=== PATIENT | male | born 1930 | race Caucasian/White ===

== ENCOUNTER → 2016-10-20 | Outpatient (CLI) | payer MEDICARE, BC, MEDICAID ==
[~2016-10-20] MED LIST: ACET-2267 PO; ALPR0.5T PO; BISA10SU58 RC; CEPH250S PO; DIPH25CA79 PO; ESCI20TA45 PO; FLUT9.9S NS; LEVO25TA2 PO; MAGN100T6 PO; MAGN400O7 PO; MELA5TAB14 PO; MEMA10TA2 PO; PHEN118S12 PO; POLY17PO6 PO; RIVA1PAT3 TD; TOLT2TAB5 PO; TRAZ100T92 PO
[2016-10-20 13:42] LABS: BILIRUBIN,URINE NEGATIVE (NEGATIVE); KETONES,URINE NEGATIVE (NEGATIVE); LEUKOCYTE ESTERASE ,URINE 3+ (NEGATIVE); NITRITE,URINE POSITIVE (NEGATIVE); PH,URINE 8 (5-9); PROTEIN,URINE 2+ (NEGATIVE); UROBILINOGEN,URINE 1 MG/DL (NORMAL)
[2016-10-20 13:54] LABS: SQUAMOUS EPITHELIAL CELL,UR RARE /HPF; TRIPLE PHOSPHATE CRYSTAL,UR RARE /LPF; WBC,URINE >100 /HPF
== END ==
PROVIDERS: ATTEND Family Medicine
DX: N39.0 Urinary tract infection, site not specified (principal)
CPT/HCPCS: 81000; 87088

== ENCOUNTER 2016-12-26 12:13 | Emergency (ER) | payer MEDICARE, BC, MEDICAID ==
[~2016-12-26] VITALS: Ht 180.3 cm; Wt 70.3 kg
--- NOTE | 2016-12-26 12:35 | ED General ---
General Chief Complaint: General Problems/Pain Stated Complaint: NEAR SYNCOPE Nursing Triage Note: [facility] called report, stating pt had sudden palor, right sided facial drooping, right sided weakness, unable to stand. pt unable to answer questions correctly for me on arrival by [facility]. Nursing Sepsis Screen: No Definite Risk Source of Information: Patient, EMS History of Present Illness Time Seen by Provider: 12:19 Initial Comments The patient's an 86-year-old white male resident of a local long-term. He was sent after a call to his PCP informed that they thought him to be less alert and active than before. It was stated that there appeared to be a right facial droop. He could not seem to walk and he was normally ambulatory. It was also thought that speech was impaired. When the EMS crew arrived they found him able to speak clearly. He apparently told them that he did not think anything was wrong that he was just a bit weak today. On my attempt to interview him he appeared to be ignoring me. The nurses reported that this had occurred for them however when they put the blood pressure cuff on he became much more alert. He did not respond verbally to the glabellar thump or sternal rub. 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 However after plantar stimulus he became quite verbally aggressive. Timing/Duration: 1-3 Hours Allergies and Home Medications Allergies Coded Allergies: donepezil (Verified Allergy, Unknown, 04/05/16) Home Medications Acetaminophen 500 Mg Tablet, 1,000 MG PO Q6H PRN for PAIN, (Reported) Alprazolam 0.5 Mg Tablet, 0.5 MG PO QID PRN for ANXIETY, (Reported) Bisacodyl 10 Mg Supp.rect, 10 MG RC DAILY PRN PRN for CONSTIPATION, (Reported) Diphenhydramine HCl 25 Mg Capsule, 25 MG PO Q6H PRN for ITCHING, (Reported) Escitalopram Oxalate 20 Mg Tablet, 20 MG PO HS, (Reported) Fluticasone Propionate 9.9 Ml Evart.susp, 9.9 ML NS DAILY, (Reported) Levothyroxine Sodium 25 Mcg Tablet, 25 MCG PO DAILY, (Reported) Magnesium Hydroxide 400 Mg/5 Ml Oral.susp, 30 ML PO DAILY PRN for CONSTIPATION, (Reported) Melatonin 5 Mg Tablet, 6 MG PO HS, (Reported) Memantine HCl 10 Mg Tablet, 10 MG PO BID, (Reported) Polyethylene Glycol 3350 17 Gm Powd.pack, 17 GM PO DAILY, (Reported) Promethazine/Phenyleph/Codeine 118 Ml Syrup, 5 ML PO Q6H PRN for COUGH, ( Reported) Rivastigmine 9.5 Mg Patch, 9.5 MG TD, (Reported) Tolterodine Tartrate 2 Mg Tablet, 2 MG PO BID, (Reported) Trazodone HCl 100 Mg Tablet, 100 MG PO HS, (Reported) Constitutional: other (the patient was not cooperative with the attempts at questioning) Past Fnospfn-Pocunt-Dxrins Hx Patient Social History Recent Foreign Travel: No Contact w/Someone Who Travel: No Recent Infectious Disease Expo: No Recent Hopitalizations: No Immunizations Up To Date Tetanus Booster (TDap): Unknown Date of Pneumonia Vaccine: Jan 18, 2016 Seasonal Allergies Seasonal Allergies: No Surgeries HX Surgeries: No (UNKNOWN) Respiratory Hx Respiratory Disorders: No Cardiovascular Hx Cardiac Disorders: No Neurological Hx Neurological Disorders: Yes Neurological Disorders: Dementia Reproductive System Hx Reproductive Disorders: No Genitourinary Hx Genitourinary Disorders: No Gastrointestinal Hx Gastrointestinal Disorders: Yes Gastrointestinal Disorders: Gastroesophageal Reflux, Chronic Constipation Musculoskeletal Hx Musculoskeletal Disorders: No Endocrine Hx Endocrine Disorders: Yes Endocrine Disorders: Hypothyroidsim HEENT HX ENT Disorders: No Cancer Hx Cancer: No Psychosocial Hx Psychiatric Problems: Yes Behavioral Health Disorders: Anxiety, Depression Integumentary HX Skin/Integumentary Disorder: No Blood Transfusions Hx Blood Disorders: No Family Medical History Significant Family History: No Pertinent Family Hx Physical Exam Vital Signs Vital Sign - Last 12Hours 12/26/16 12:17 Temp 97.0 Pulse 64 Resp 18 B/P (MAP) 99/67 Pulse Ox 100 O2 Delivery Nasal Cannula O2 Flow Rate 3.00 Capillary Refill : Less Than 3 Seconds General Appearance: Other Eyes: Bilateral Eye PERRL HEENT: Normal ENT Inspection Neck: Full Range of Motion, Normal Inspection, Non Tender, Supple, Carotid Bruit Respiratory: Chest Non Tender, Lungs Clear, Normal Breath Sounds, No Accessory Muscle Use, No Respiratory Distress Cardiovascular: Regular Rate, Rhythm, No Edema, No Gallop, No JVD, No Murmur, Normal Peripheral Pulses Gastrointestinal: Normal Bowel Sounds, No Organomegaly, No Pulsatile Mass, Non Tender, Soft Back: Normal Inspection, No CVA Tenderness, No Vertebral Tenderness Extremity: Normal Capillary Refill, Normal Inspection, Normal Range of Motion, Non Tender, No Calf Tenderness, No Pedal Edema Skin: Normal Color, Warm/Dry Lymphatic: No Adenopathy Progress/Results/Core Measures Results/Orders Lab Results Laboratory Tests Test 12/26/16 12:23 Range/Units White Blood Count 6.2 4.3-11.0 10^3/uL Red Blood Count 4.23 L 4.35-5.85 10^6/uL Hemoglobin 12.2 L 13.3-17.7 G/DL Hematocrit 39 L 40-54 % Mean Corpuscular Volume 92 80-99 FL Mean Corpuscular Hemoglobin 29 25-34 PG Mean Corpuscular Hemoglobin Concent 31 L 32-36 G/DL Red Cell Distribution Width 14.7 H 10.0-14.5 % Platelet Count 261 130-400 10^3/uL Mean Platelet Volume 9.7 7.4-10.4 FL Neutrophils (%) (Auto) 69 42-75 % Lymphocytes (%) (Auto) 20 12-44 % Monocytes (%) (Auto) 8 0-12 % Eosinophils (%) (Auto) 3 0-10 % Basophils (%) (Auto) 0 0-10 % Neutrophils # (Auto) 4.3 1.8-7.8 X 10^3 Lymphocytes # (Auto) 1.2 1.0-4.0 X 10^3 Monocytes # (Auto) 0.5 0.0-1.0 X 10^3 Eosinophils # (Auto) 0.2 0.0-0.3 10^3/uL Basophils # (Auto) 0.0 0.0-0.1 10^3/uL Sodium Level 143 135-145 MMOL/L Potassium Level 4.5 3.6-5.0 MMOL/L Chloride Level 107 98-107 MMOL/L Carbon Dioxide Level 25 21-32 MMOL/L Anion Gap 11 5-14 MMOL/L Blood Urea Nitrogen 26 H 7-18 MG/DL Creatinine 1.13 0.60-1.30 MG/DL Estimat Glomerular Filtration Rate > 60 BUN/Creatinine Ratio 23 Glucose Level 97 70-105 MG/DL Calcium Level 8.9 8.5-10.1 MG/DL Total Bilirubin 0.4 0.1-1.0 MG/DL Aspartate Amino Transf (AST/SGOT) 17 5-34 U/L Alanine Aminotransferase (ALT/SGPT) 11 0-55 U/L Alkaline Phosphatase 75 40-136 U/L Total Protein 6.3 L 6.4-8.2 G/DL Albumin 3.5 3.2-4.5 G/DL My Orders Orders - AALIYAH GRANDA MD Ct Head Wo (12/26/16 12:25) Cbc With Automated Diff (12/26/16 12:25) Comprehensive Metabolic Panel (12/26/16 12:25) Ua Culture If Indicated (12/26/16 12:25) Vital Signs/I&O Vital Sign - Last 12Hours 12/26/16 12:17 Temp 97.0 Pulse 64 Resp 18 B/P (MAP) 99/67 Pulse Ox 100 O2 Delivery Nasal Cannula O2 Flow Rate 3.00 Blood Pressure Mean: 78 Departure Communication Progress Notes CT scan of the head shows increase in size of the lateral ventricles as compared to May 2016. 1434 family is here at this time. He is brighter than he has been at any time during this visit. Impression Impression: Primary Impression: decreased level of consciousness Disposition: 01 HOME, SELF-CARE Condition: Improved Departure-Patient Inst. Decision time for Depature: 14:33 Referrals: SHAKIRA PLEITEZ DO (PCP/Family) Primary Care Physician Add. Discharge Instructions: All discharge instructions reviewed with patient and/or family. Voiced understanding. Encourage fluid intake. Resume orders AALIYAH GRANDA MD Dec 26, 2016 12:35
[2016-12-26 12:52] LABS: BASOPHILS % (AUTO) 0 % (0-10); EOSINOPHILS # (AUTO) 0.2 10^3/uL (0.0-0.3); EOSINOPHILS % (AUTO) 3 % (0-10); LYMPHOCYTES # (AUTO) 1.2 X 10^3 (1.0-4.0); LYMPHOCYTES % (AUTO) 20 % (12-44); MEAN CORPUSCULAR HEMOGLOBIN 29 PG (25-34); MEAN CORPUSCULAR HGB CONC 31 G/DL (32-36); MEAN CORPUSCULAR VOLUME 92 FL (80-99); MEAN PLATELET VOLUME 9.7 FL (7.4-10.4); MONOCYTES # (AUTO) 0.5 X 10^3 (0.0-1.0); MONOCYTES % (AUTO) 8 % (0-12); NEUTROPHILS # (AUTO) 4.3 X 10^3 (1.8-7.8); NEUTROPHILS % (AUTO) 69 % (42-75); PLATELET COUNT 261 10^3/uL (130-400); RED BLOOD COUNT 4.23 10^6/uL (4.35-5.85); RED CELL DISTRIBUTION WIDTH 14.7 % (10.0-14.5); WHITE BLOOD COUNT 6.2 10^3/uL (4.3-11.0)
[2016-12-26 13:01] LABS: ALANINE AMINOTRANSFERASE 11 U/L (0-55); ALBUMIN 3.5 G/DL (3.2-4.5); ANION GAP 11 MMOL/L (5-14); ASPARTATE AMINO TRANSFERASE 17 U/L (5-34); BILIRUBIN,TOTAL 0.4 MG/DL (0.1-1.0); BLOOD UREA NITROGEN 26 MG/DL (7-18); BUN/CREATININE RATIO 23; CALCIUM 8.9 MG/DL (8.5-10.1); CARBON DIOXIDE 25 MMOL/L (21-32); CHLORIDE 107 MMOL/L (98-107); CREATININE SERUM 1.13 MG/DL (0.60-1.30); GFR ESTIMATED > 60; GLUCOSE 97 MG/DL (70-105); POTASSIUM 4.5 MMOL/L (3.6-5.0); SODIUM 143 MMOL/L (135-145); TOTAL PROTEIN 6.3 G/DL (6.4-8.2)
--- NOTE | 2016-12-26 13:58 | Diagnostic Imaging Report ---
CLINICAL INDICATION: Patient with altered mental status. EXAM: Axial CT scan of the brain performed without IV contrast. COMPARISON: Head CT without IV contrast dated 06/05/2016. FINDINGS: There is interval progression of enlargement of the temporal horns of the lateral ventricles. There is also slight increased prominence of the lateral ventricles and third ventricle as well. There is no obstructing third ventricular mass or cerebral aqueduct abnormality seen. There is no significant change to the focal, patchy and mildly confluent areas of low-attenuation white matter changes seen throughout both cerebral hemispheres. There is no evidence of intracranial hemorrhage, midline shift or herniation. Of note, the upper aspect of the brain parenchyma and skull was not completely imaged on this exam. There is marked brain parenchymal volume loss involving the bilateral temporal lobes with the anterior aspects of the temporal lobes affected the most. There is no brain herniation or midline shift seen. Basal cisterns are unremarkable. The extracranial soft tissue, skull and orbits are unremarkable as visualized. IMPRESSION: 1: There is interval enlargement of the lateral and third ventricles compared to the prior study. 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 Clinical correlation is suggested. 2: There is marked volume loss involving the bilateral temporal lobe regions. Correlation with dementia is suggested. 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 Dictated by: Dictated on workstation # [id number]
[2016-12-26 15:54] VITALS: BP 134/77
== END 2016-12-26 15:54 ==
LOC: EDUNIT# 12:13 → ER 12:14
DX: R41.82 Altered mental status, unspecified (principal); F03.90 Unspecified dementia, unspecified severity, without behavioral disturbance, psychotic disturbance, mood disturbance, and anxiety; Z79.899 Other long term (current) drug therapy
CPT/HCPCS: 36415; 70450; 80053; 85025; 99283

== ENCOUNTER 2017-01-22 12:44 | Emergency (ER) | payer MEDICARE, BC, MEDICAID ==
[~2017-01-22] VITALS: Ht 180.3 cm; Wt 70.3 kg
--- OUTSIDE RECORDS SUMMARY | 2017-01-22 13:00 | XMS REPORT | Continuity of Care Document ---
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 08/08/2012 D 486 PNEUMONIA, ORGANISM NOS 08/08/2012 D 780.79 OTHER MALAISE & FATIGUE 08/08/2012 D 276.51 DEHYDRATION 08/08/2012 D 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 08/08/2012 D 486 PNEUMONIA, ORGANISM NOS 08/08/2012 D 780.79 OTHER MALAISE & FATIGUE 08/14/2012 SAM PUGH DO 294.11 DEMENTIA W/ BEHAV DISTUR 08/14/2012 SAM PUGH DO 311 DEPRESSIVE DISORDER NEC 08/14/2012 SAM PUGH DO 331.0 ALZHEIMER'S DISEASE 08/14/2012 SAM PUGH DO 486 PNEUMONIA, ORGANISM NOS 08/14/2012 SAM PUGH DO 780.79 OTHER MALAISE & FATIGUE 08/14/2012 SAM PUGH DO 783.0 ANOREXIA 08/14/2012 SAM PUGH DO 786.6 CHEST SWELLING/MASS/LUMP 08/14/2012 SAM PUGH DO 790.6 ABN BLOOD CHEMISTRY NEC 08/17/2012 KIKI REAL MD 294.11 DEMENTIA W/ BEHAV DISTUR 08/17/2012 KIKI REAL MD 311 DEPRESSIVE DISORDER NEC 08/17/2012 KIKI REAL MD 331.0 ALZHEIMER'S DISEASE 08/17/2012 KIKI REAL MD 486 PNEUMONIA, ORGANISM NOS 08/17/2012 KIKI REAL MD 599.0 URIN TRACT INFECTION NOS 08/17/2012 KIKI REAL MD 780.79 OTHER MALAISE & FATIGUE 08/17/2012 KIKI REAL MD 783.0 ANOREXIA 08/17/2012 KIKI REAL MD 786.6 CHEST SWELLING/MASS/LUMP 08/17/2012 KIKI REAL MD 790.6 ABN BLOOD CHEMISTRY NEC 08/17/2012 KIKI REAL MD V57.89 REHABILITATION PROC NEC 09/25/2013 KIKI REAL MD 487.1 FLU W RESP MANIFEST NEC 09/25/2013 KIKI REAL MD 780.60 FEVER NOS 09/25/2013 KIKI REAL MD 780.97 ALTERED MENTAL STATUS 09/25/2013 KIKI REAL MD 486 PNEUMONIA, ORGANISM NOS 09/25/2013 KIKI REAL MD 488.01 FLU D/T AIV W PNEUMONIA 09/25/2013 KIKI REAL MD 780.60 FEVER NOS 09/25/2013 KIKI REAL MD 786.2 COUGH 09/28/2013 CIRO CONTRERAS MD 244.9 HYPOTHYROIDISM NOS 09/28/2013 CIRO CONTRERAS MD 294.10 DEMENTIA W/O BEHAV DIST 09/28/2013 ICRO CONTRERAS MD 331.0 ALZHEIMER'S DISEASE 09/28/2013 CIRO CONTRERAS MD 487.1 FLU W RESP MANIFEST NEC 09/28/2013 CIRO CONTRERAS MD 780.97 ALTERED MENTAL STATUS 10/17/2013 KIKI REAL MD 799.02 HYPOXEMIA 10/17/2013 KIKI REAL MD 799.02 HYPOXEMIA 10/25/2013 CIRO CONTRERAS MD 780.2 SYNCOPE AND COLLAPSE 01/29/2014 ELIZABETH POTTER MD 704.8 HAIR DISEASES NEC 01/29/2014 ELIZABETH POTTER MD 704.8 HAIR DISEASES NEC 10/21/2014 CIRO CONTRERAS MD 244.9 HYPOTHYROIDISM NOS 10/21/2014 CIRO CONTRERAS MD 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 10/21/2014 CIRO CONTRERAS MD 268.9 VITAMIN D DEFICIENCY NOS 10/21/2014 CIRO CONTRERAS MD 780.52 INSOMNIA NOS 10/21/2014 CIRO CONTRERAS MD 780.79 OTHER MALAISE & FATIGUE 08/19/2015 CIRO CONTRERAS MD E86.0 Dehydration 08/19/2015 CIRO CONTRERAS MD F02.80 Dementia in oth diseases classd elswhr w/o behavrl disturb 08/19/2015 CIRO CONTRERAS MD G30.9 Alzheimer's disease, unspecified 08/19/2015 CIRO CONTRERAS MD J20.9 Acute bronchitis, unspecified 08/19/2015 CIRO CONTRERAS MD R09.02 Hypoxemia 08/20/2015 CIRO CONTRERAS MD E86.0 Dehydration 08/20/2015 CIRO CONTRERAS MD F02.80 Dementia in oth diseases classd elswhr w/o behavrl disturb 08/20/2015 CIRO CONTRERAS MD G30.9 Alzheimer's disease, unspecified 08/20/2015 CIRO CONTRERAS MD J20.9 Acute bronchitis, unspecified 08/20/2015 CIRO CONTRERAS MD R09.02 Hypoxemia Procedures Code Description [place] [address] ROUTINE VENIPUNCTURE SAM PUGH DO 04/24/2012 46416 COMPREHEN METABOLIC PANEL SAM PUGH DO 04/24/2012 94744 ASSAY OF TOTAL TESTOSTERONE SAM PUGH DO 04/24/2012 68540 ASSAY THYROID STIM HORMONE SAM PUGH DO 04/24/2012 89607 COMPLETE CBC W/AUTO DIFF WBC SAM PUGH DO 04/24/2012 83919 CHEST X-RAY SAM PUGH DO 08/08/2012 76663 COMPREHEN METABOLIC PANEL SAM PUGH DO 08/08/2012 93315 NATRIURETIC PEPTIDE SAM PUGH DO 08/08/2012 31181 BL SMEAR W/DIFF WBC COUNT FANI HOOVER 08/08/2012 39166 COMPLETE CBC, AUTOMATED FANI HOOVER 08/08/2012 61995 MYCOPLASMA ANTIBODY SAM PUGH DO 08/08/2012 99937 EMERGENCY DEPT VISIT FANI HOOVER 08/08/2012 26928 EMERGENCY DEPT VISIT FANI HOOVER 08/08/2012 28089 EMERGENCY DEPT VISIT FARHAN SULTANA, KIKI Miller 09/25/[address] HEAD/BRAIN W/O & W/BERNARDO REAL MD, KIKI Miller 09/25/2013 00481 CHEST X-RAY FARHAN SULTANA, KIKI Miller 09/25/[address] THORAX W/BERNARDO REAL MD, KIKI Miller 09/25/2013 07371 COMPREHEN METABOLIC PANEL FARHAN SULTANA, KIKI Miller 09/25/2013 21649 COMPLETE CBC W/AUTO DIFF WBC FARHAN SULTANA, KIKI Miller 09/25/2013 12156 MYCOPLASMA ANTIBODY FARHAN SULTANA, KIKI Miller 09/25/2013 56386 BLOOD CULTURE FOR BACTERIA FARHAN SULTANA, KIKI Miller 09/25/2013 27994 AG DETECT NOS, EIA, MULT FARHAN SULTANA, KIKI Miller 09/25/2013 37169 INFLUENZA ASSAY W/OPTIC FARHAN SULTANA, KIKI Miller 09/25/2013 20263 EMERGENCY DEPT VISIT FARHAN SULTANA, KIKI Miller 09/25/2013 Q9966 LOCM 200-299MG/ML IODINE,1ML FARHAN SULTANA, KIKI Miller 09/25/2013 09209 WITHDRAWAL OF ARTERIAL BLOOD BEN SULTANA, CIRO Flowers 10/17/2013 47301 CHEST X-RAY BEN SULTANA, CIRO Flowers 10/17/2013 61583 COMPREHEN METABOLIC PANEL BEN SULTANA , CIRO Flowers 10/17/2013 48193 BLOOD GASES: PH, PO2 & PCO2 BEN SULTANA, CIRO Flowers 10/17/2013 04387 COMPLETE CBC W/AUTO DIFF WBC BEN SULTANA, CIRO Flowers 10/17/2013 15703 MYCOPLASMA ANTIBODY BEN SULTANA, CIRO Flowers 10/17/2013 02876 EMERGENCY DEPT VISIT FARHAN SULTANA, KIKI Miller 10/17/2013 33348 EMERGENCY DEPT VISIT FARHAN SULTANA, KIKI Miller 10/17/2013 44666 ECG MONITOR/RECORD, 24 HRS BEN SULTANA , CIRO Flowers 10/25/2013 68093 CHEST X-RAY CIRO CONTRERAS MD 01/29/2014 46430 X-RAY EXAM OF SHOULDER CIRO CONTRERAS MD 01/29/2014 97537 THER/PROPH/DIAG INJ, SC/IM ELIZABETH POTTER MD 01/29/2014 28235 EMERGENCY DEPT VISIT ELIZABETH POTTER MD 01/29/2014 A9270 NON-COVERED ITEM OR SERVICE JASMYNE POTTER MDO Linnette 01/29/2014 J0696 CEFTRIAXONE SODIUM INJECTION ELIZABETH POTTER MD 01/29/2014 J1885 KETOROLAC TROMETHAMINE INJ ELIZABETH POTTER MD 01/29/2014 88521 EMERGENCY DEPT VISIT ELIZABETH POTTER MD 01/29/2014 54916 ROUTINE VENIPUNCTURE CIRO CONTRERAS MD 10/21/2014 58542 COMPREHEN METABOLIC PANEL CIRO CONTRERAS MD 10/21/2014 21618 ASSAY OF VITAMIN D CIRO CONTRERAS MD 10/21/2014 03135 VITAMIN B-12 CIRO CONTRERAS MD 10/21/2014 50207 ASSAY OF MAGNESIUM CIRO CONTRERAS MD 10/21/2014 40255 ASSAY OF FREE THYROXINE CIRO CONTRERAS MD 10/21/2014 13343 ASSAY THYROID STIM HORMONE CIRO CONTRERAS MD 10/21/2014 67919 COMPLETE CBC W/AUTO DIFF WBC CIRO CONTRERAS MD 10/21/2014 94069 ROUTINE VENIPUNCTURE CIRO CONTRERAS MD 08/19/2015 15701 WITHDRAWAL OF ARTERIAL BLOOD CIRO CONTRERAS MD 08/19/2015 04270 CHEST X-RAY 1 VIEW FRONTAL CIRO CONTRERAS MD 08/19/2015 72093 COMPREHEN METABOLIC PANEL CIRO CONTRERAS MD 08/19/2015 62902 BLOOD GASES ANY COMBINATION CIRO CONTRERAS MD 08/19/2015 49516 ASSAY OF LACTIC ACID CIRO CONTRERAS MD 08/19/2015 23394 ASSAY OF NATRIURETIC PEPTIDE CIRO CONTRERAS MD 08/19/2015 77243 COMPLETE CBC W/AUTO DIFF WBC CIRO CONTRERAS MD 08/19/2015 67200 MYCOPLASMA ANTIBODY BEN SULTANA, CIRO Kristie 08/19/2015 93007 AIRWAY INHALATION TREATMENT BEN SULTANA, [facility] 08/19/2015 08275 TX/PRO/DX INJ SAME DRUG FISH ROE TECHNICIAN BEN SULTANA, [facility] 08/19/2015 34649 EMERGENCY DEPT VISIT BEN SULTANA, CIRO B 08/19/2015 A9270 NON-COVERED ITEM OR SERVICE ABBEY SULTANA , [facility] 08/19/2015 G0378 HOSPITAL OBSERVATION PER HR BEN SULTANA, [facility] 08/19/2015 J0696 CEFTRIAXONE SODIUM ELVI POTTER MD , [facility] 08/19/2015 J7030 NORMAL SALINE SOLUTION NAPOLEON POTTER MD , [facility] 08/19/2015 J7050 NORMAL SALINE SOLUTION NAPOLEON POTTER MD , [facility] 08/19/2015 98733 EMERGENCY DEPT VISIT ABBEY SULTANA, [facility] 08/19/2015 65198 URINALYSIS AUTO W/SCOPE BEN SULTANA, [facility] 08/20/2015 10716 CULTURE OTHR SPECIMN AEROBIC BEN SULTANA, [facility] 08/20/2015 57472 CULTURE AEROBIC IDENTIFY BEN SULTANA, [facility] 08/20/2015 89334 SMEAR GRAM STAIN BEN SULTANA, [facility] 08/20/2015 36819 AIRWAY INHALATION TREATMENT BEN SULTANA, [facility] 08/20/2015 13902 THER/PROPH/DIAG IV INF INIT BEN SULTANA [facility] 08/20/2015 A9270 NON-COVERED ITEM OR SERVICE ABBEY SULTANA , [facility] 08/20/2015 J0696 CEFTRIAXONE SODIUM ELVI POTTER MD , [facility] 08/20/2015 J7030 NORMAL SALINE SOLUTION NAPOLEON POTTER MD , [facility] 08/20/2015 J7050 NORMAL SALINE SOLUTION NAPOLEON POTTER MD , [facility] 08/20/2015 Results Test Result Range COMPLETE BLOOD COUNT - 09/25/13 10:23 Platelet 239 10^3u 142-424 MPV 8.9 FL 9.4-12.4 [place] # 0.70 10^3u 0.0-1.0 RBC 4.24 10^6u 4.04-6.13 [place] % 9.6 % 0-12 RDW 14.2 % 11.6-14.8 Neut # 5.80 10^3u 2.0-6.9 Neut % 79.8 % 37-80 WBC 7.27 10^3u 4.60-10.20 MCV 87.7 FL 80.0-97.0 Baso # 0.03 10^3u 0.0-0.1 Baso % 0.4 % 0-2 Eos # 0.02 10^3u 0-0.7 Eos % 0.3 % 0-7 Lymph % 9.9 % 10-50 MCHC 32.8 G/DL 31.8-35.4 MCH 28.8 PG 27.0-31.2 Lymph # 0.72 10^3u 0.6-3.4 HGB 12.2 G/DL 12.2-18.1 HCT 37.2 % 37.7-53.7 CMP - 09/25/13 10:23 Osmo Calculated 269 MOSM 261-280 Sodium 138 MMOLL 137-145 T. Protein 7.0 G/DL 6.3-8.2 Potassium 3.9 MMOLL 3.6-5.0 T Bili 0.6 MG/DL 0.2-1.3 Calcium 8.6 MG/DL 8.4-10.2 BUN 21 MG/DL 7-21 Chloride 100 MMOLL 98-107 AST 26 U/L 15-46 ALT 29 U/L 7-56 Albumin 3.7 G/DL 3.5-5.0 A/G Ratio 1.1 RATIO 1.2-2.2 Bun/Creat 17.2 RATIO 7-25 Alk Phos 93 U/L 38-126 CO2 28 MMOLL 22-30 Glucose 91 MG/DL 65-110 Globulin 3.2 2.4-3.5 Creatinine 1.2 MG/DL 0.7-1.5 Mycoplasma Antibody - 09/25/13 10:23 Mycoplasma Antibody NEG Negative Influenza A B - 09/25/13 10:23 Influenza A POS Negative Influenza B NEG Negative TSH - 09/25/13 15:27 TSH 1.44 UIUML 0.35-4.94 Urinalysis - 09/25/13 15:49 Glucose Negative Negative Leukocyte Negative Negative Nitrite Negative Negative pH 5.5 5.5-7.5 Urine Appearance Clear Clear Protein 1+ Negative Ketones 1+ Negative Urobilinogen 0.2 0.2-1.0 Urine RBC N0-2 Specific [place] <=1.005 1.010-1.020 Urine WBC N0-2 Blood 1+ Negative Color Yellow Yellow SG by Refractometer 1.050 Bilirubin Negative Negative Strep Pneumo Ag, Urine - 09/25/13 15:49 Strep Pneumo Ag, Urine NEG Negative COMPLETE BLOOD COUNT - 09/27/13 05:42 Platelet 251 10^3u 142-424 MPV 8.8 FL 9.4-12.4 [place] # 0.60 10^3u 0.0-1.0 RBC 4.00 10^6u 4.04-6.13 [place] % 9.0 % 0-12 RDW 14.4 % 11.6-14.8 Neut # 4.56 10^3u 2.0-6.9 Neut % 68.6 % 37-80 WBC 6.65 10^3u 4.60-10.20 MCV 88.3 FL 80.0-97.0 Baso # 0.02 10^3u 0.0-0.1 Baso % 0.3 % 0-2 Eos # 0.20 10^3u 0-0.7 Eos % 3.0 % 0-7 Lymph % 19.1 % 10-50 MCHC 32.6 G/DL 31.8-35.4 MCH 28.8 PG 27.0-31.2 Lymph # 1.27 10^3u 0.6-3.4 HGB 11.5 G/DL 12.2-18.1 HCT 35.3 % 37.7-53.7 CMP - 09/27/13 05:42 Osmo Calculated 278 MOSM 261-280 Sodium 144 MMOLL 137-145 T. Protein 6.2 G/DL 6.3-8.2 Potassium 3.9 MMOLL 3.6-5.0 T Bili 0.2 MG/DL 0.2-1.3 Calcium 8.4 MG/DL 8.4-10.2 BUN 14 MG/DL 7-21 Chloride 108 MMOLL 98-107 AST 27 U/L 15-46 ALT 27 U/L 7-56 Albumin 3.2 G/DL 3.5-5.0 A/G Ratio 1.1 RATIO 1.2-2.2 Bun/Creat 11.7 RATIO 7-25 Alk Phos 87 U/L 38-126 CO2 26 MMOLL 22-30 Glucose 86 MG/DL 65-110 Globulin 3.0 2.4-3.5 Creatinine 1.2 MG/DL 0.7-1.5 COMPLETE BLOOD COUNT - 09/28/13 05:18 Platelet 266 10^3u 142-424 MPV 8.8 FL 9.4-12.4 [place] # 0.64 10^3u 0.0-1.0 RBC 4.24 10^6u 4.04-6.13 [place] % 10.1 % 0-12 RDW 14.5 % 11.6-14.8 Neut # 4.07 10^3u 2.0-6.9 Neut % 64.3 % 37-80 WBC 6.34 10^3u 4.60-10.20 MCV 88.0 FL 80.0-97.0 Baso # 0.02 10^3u 0.0-0.1 Baso % 0.3 % 0-2 Eos # 0.32 10^3u 0-0.7 Eos % 5.0 % 0-7 Lymph % 20.3 % 10-50 MCHC 31.9 G/DL 31.8-35.4 MCH 28.1 PG 27.0-31.2 Lymph # 1.29 10^3u 0.6-3.4 HGB 11.9 G/DL 12.2-18.1 HCT 37.3 % 37.7-53.7 CMP - 09/28/13 05:18 Osmo Calculated 280 MOSM 261-280 Sodium 146 MMOLL 137-145 T. Protein 6.7 G/DL 6.3-8.2 Potassium 3.8 MMOLL 3.6-5.0 T Bili 0.3 MG/DL 0.2-1.3 Calcium 8.7 MG/DL 8.4-10.2 BUN 12 MG/DL 7-21 Chloride 106 MMOLL 98-107 AST 40 U/L 15-46 ALT 29 U/L 7-56 Albumin 3.5 G/DL 3.5-5.0 A/G Ratio 1.1 RATIO 1.2-2.2 Bun/Creat 11.0 RATIO 7-25 Alk Phos 85 U/L 38-126 CO2 29 MMOLL 22-30 Glucose 79 MG/DL 65-110 Globulin 3.3 2.4-3.5 Creatinine 1.0 MG/DL 0.7-1.5 Arterial Blood Gas - 10/17/13 09:33 O2/L ROOMAIR L pCO2 32 mmHg 35-45 HCO3 26 MMOLL 22-26 pH 7.52 Units 7.35-7.45 Total CO2 27 MMOLL 23-27 pO2 96 mmHg 75-90 Base Excess 3 MMOLL -2-+2 O2 Sat 98 % 96-97 COMPLETE BLOOD COUNT - 10/17/13 09:33 Platelet 231 10^3u 142-424 MPV 9.2 FL 9.4-12.4 [place] # 0.69 10^3u 0.0-1.0 RBC 4.20 10^6u 4.04-6.13 [place] % 10.9 % 0-12 RDW 14.6 % 11.6-14.8 Neut # 3.80 10^3u 2.0-6.9 Neut % 59.9 % 37-80 WBC 6.34 10^3u 4.60-10.20 MCV 88.1 FL 80.0-97.0 Baso # 0.04 10^3u 0.0-0.1 Baso % 0.6 % 0-2 Eos # 0.22 10^3u 0-0.7 Eos % 3.5 % 0-7 Lymph % 25.1 % 10-50 MCHC 33.0 G/DL 31.8-35.4 MCH 29.0 PG 27.0-31.2 Lymph # 1.59 10^3u 0.6-3.4 HGB 12.2 G/DL 12.2-18.1 HCT 37.0 % 37.7-53.7 CMP - 10/17/13 09:33 Osmo Calculated 276 MOSM 261-280 Sodium 142 MMOLL 137-145 T. Protein 5.6 G/DL 6.3-8.2 Potassium 4.2 MMOLL 3.6-5.0 T Bili 0.6 MG/DL 0.2-1.3 Calcium 8.8 MG/DL 8.4-10.2 BUN 23 MG/DL 7-21 Chloride 106 MMOLL 98-107 AST 21 U/L 15-46 ALT 30 U/L 7-56 Albumin 3.0 G/DL 3.5-5.0 A/G Ratio 1.2 RATIO 1.2-2.2 Bun/Creat 20.5 RATIO 7-25 Alk Phos 82 U/L 38-126 CO2 25 MMOLL 22-30 Glucose 83 MG/DL 65-110 Globulin 2.6 2.4-3.5 Creatinine 1.1 MG/DL 0.7-1.5 Mycoplasma Antibody - 10/17/13 09:33 Mycoplasma Antibody NEG Negative Holter Monitor - 10/25/13 11:19 Holter Monitor SMR TSH - 10/21/14 14:25 TSH 1.58 UIUML 0.35-4.94 Free T4 - 10/21/14 14:25 Free T4 1.01 NG/DL 0.70-1.48 COMPLETE BLOOD COUNT - 10/21/14 14:54 Platelet 249 10^3u 142-424 MPV 9.8 FL 9.4-12.4 [place] # 0.61 10^3u 0.0-1.0 RBC 4.29 10^6u 4.04-6.13 [place] % 11.9 % 0-12 RDW 13.5 % 11.6-14.8 Neut # 2.72 10^3u 2.0-6.9 Neut % 53.2 % 37-80 WBC 5.11 10^3u 4.60-10.20 MCV 96.7 FL 80.0-97.0 Baso # 0.04 10^3u 0.0-0.1 Baso % 0.8 % 0-2 Eos # 0.26 10^3u 0-0.7 Eos % 5.1 % 0-7 Lymph % 29.0 % 10-50 MCHC 32.0 G/DL 31.8-35.4 MCH 31.0 PG 27.0-31.2 Lymph # 1.48 10^3u 0.6-3.4 HGB 13.3 G/DL 12.2-18.1 HCT 41.5 % 37.7-53.7 Vitamin B12 - 10/21/14 14:54 Vitamin B12 583 PG/ML 200-1000 Vitamin D 25 Hydroxy - 10/21/14 14:54 Vitamin D 25 Hydroxy 39.6 NG/ML 30-100 CMP - 10/21/14 15:15 Osmo Calculated 273 MOSM 261-280 Sodium 140 MMOLL 137-145 T. Protein 6.3 G/DL 6.3-8.2 Potassium 4.3 MMOLL 3.6-5.0 T Bili 0.4 MG/DL 0.2-1.3 Calcium 9.2 MG/DL 8.4-10.2 BUN 22 MG/DL 7-21 Chloride 106 MMOLL 98-107 AST 27 U/L 15-46 ALT 23 U/L 7-56 Albumin 3.6 G/DL 3.5-5.0 A/G Ratio 1.3 RATIO 1.2-2.2 Bun/Creat 19.9 RATIO 7-25 Alk Phos 88 U/L 38-126 CO2 26 MMOLL 22-30 Glucose 80 MG/DL 65-110 Globulin 2.7 2.4-3.5 Creatinine 1.1 MG/DL 0.7-1.5 Magnesium - 10/21/14 15:15 Magnesium 2.1 MG/DL 1.7-2.2 COMPLETE BLOOD COUNT - 08/19/15 13:54 Platelet 312 10^3u 142-424 MPV 8.9 FL 9.4-12.4 [place] # 0.92 10^3u 0.0-1.0 RBC 3.98 10^6u 4.04-6.13 [place] % 9.3 % 0-12 RDW 14.3 % 11.6-14.8 Neut # 7.96 10^3u 2.0-6.9 Neut % 80.2 % 37-80 WBC 9.92 10^3u 4.60-10.20 MCV 89.9 FL 80.0-97.0 Baso # 0.01 10^3u 0.0-0.1 Baso % 0.1 % 0-2 Eos # 0.08 10^3u 0-0.7 Eos % 0.8 % 0-7 Lymph % 9.6 % 10-50 MCHC 31.6 G/DL 31.8-35.4 MCH 28.4 PG 27.0-31.2 Lymph # 0.95 10^3u 0.6-3.4 HGB 11.3 G/DL 12.2-18.1 HCT 35.8 % 37.7-53.7 Arterial Blood Gas w/ Lactate - 08/19/15 13:55 O2/L ROOMAIR L pCO2 34 mmHg 35-45 HCO3 23 MMOLL 22-26 pH 7.44 Units 7.35-7.45 Total CO2 24 MMOLL 23-27 pO2 67 mmHg 75-90 Base Excess -1 MMOLL -2-+2 O2 Sat 94 % 96-97 Lactic Acid 10.2 MG/DL 3.2-11.3 Mycoplasma Antibody - 08/19/15 14:11 Mycoplasma Antibody NEG Negative CMP - 08/19/15 14:23 Osmo Calculated 279 MOSM 261-280 Sodium 141 MMOLL 136-145 T. Protein 6.5 G/DL 6.4-8.3 Potassium 3.8 MMOLL 3.5-5.1 T Bili 0.5 MG/DL 0.2-1.2 Calcium 9.3 MG/DL 8.4-10.2 BUN 26 MG/DL 7-26 Chloride 108 MMOLL 98-107 AST 12 U/L 5-34 ALT 6 U/L 0-55 Albumin 2.8 G/DL 3.5-5.0 A/G Ratio 0.8 RATIO 1.2-2.2 Bun/Creat 22 RATIO 7-25 Alk Phos 79 U/L 40-150 CO2 22 MMOLL 22-29 Glucose 132 MG/DL 70-99 Globulin 3.7 G/DL 2.4-3.5 Creatinine 1.2 MG/DL 0.6-1.3 BNP - 08/19/15 14:40 BNP 46.5 PG/ML <=100 Urinalysis - 08/20/15 14:28 Glucose Negative Negative Leukocyte Negative Negative Nitrite Negative Negative pH 5.5 5.5-7.5 Urine Appearance Clear Clear Protein 1+ Negative Ketones Trace Negative Urobilinogen 0.2 0.2-1.0 Urine RBC N3-5 Specific [place] 1.025 1.010-1.020 Urine WBC NONESEEN Blood 1+ Negative Color Yellow Yellow Bilirubin Negative Negative Site UNK Encounters ACCT No. Visit Date/Time Discharge Status Pt. Type Provider Facility Loc./Unit Complaint [id number] 08/19/2015 14:20:00 08/20/2015 18 :40:00 DIS Outpatient CIRO CONTRERAS MD [place] [address] [id number] 08/19/2015 14:07:00 08/19/2015 14 :07:00 DIS Outpatient CIRO CONTRERAS MD [id number] 08/19/2015 13:40:00 08/19/2015 13 :40:00 DIS Outpatient BEN SULTANA, [facility] OTHER [id number] 10/21/2014 12:53:00 10/21/2014 23 :59:59 CLS Outpatient BEN SULTANA, [facility] OTHER [id number] 01/29/2014 21:46:00 01/30/2014 22 :14:00 DIS Emergency ABBEY SULTANA, [facility] ER [id number] 01/29/2014 22:15:00 01/29/2014 22 :15:00 DIS Outpatient ABBEY SULTANA, [facility] OTHER [id number] 10/25/2013 10:45:00 10/25/2013 10 :45:00 DIS Outpatient BEN SULTANA, [facility] OTHER [id number] 10/17/2013 09:00:00 10/17/2013 10 :25:00 DIS Emergency FARHAN SULTANA, [facility] ER [id number] 10/17/2013 09:30:00 10/17/2013 09 :30:00 DIS Outpatient FARHAN SULTANA, [facility] OTHER [id number] 09/25/2013 12:45:00 09/28/2013 16 :15:00 DIS Inpatient BEN SULTANA, [facility] NS1 [id number] 09/25/2013 09:50:00 09/25/2013 12 :44:00 DIS Emergency FARHAN SULTANA, [facility] OTHER [id number] 09/25/2013 10:05:00 09/25/2013 10 :05:00 DIS Outpatient FARHAN SULTANA, [facility] OTHER [id number] 08/08/2012 19:55:00 08/08/2012 23 :59:59 CLS Emergency [id number] 08/08/2012 19:55:00 08/08/2012 23 :59:59 CLS Outpatient [id number] 04/24/2012 11:26:00 04/24/2012 23 :59:59 CLS Outpatient [id number] 08/14/2012 14:15:00 Inpatient FARHAN SULTANA, [facility] [id number] 08/08/2012 21:15:00 Inpatient SAM PUGH DO
--- NOTE | 2017-01-22 13:29 | ED Hip Pain/Injury ---
General Chief Complaint: Hip/Pelvic Problems Stated Complaint: FALL/ RT HIP PAIN Nursing Triage Note: TO ED PER W/C [facility]. STAFF REPORT THAT WAS HELPING HIM WALK WHEN STARTED TO FALL HELPED HIM TO FLOOR PATIENT STILL CON'T TO FAVOR R HIP Source: patient, long-term records, caregiver Exam Limitations: no limitations History of Present Illness Time seen by provider: 13:15 Initial Comments Patient was walking with assistance at the long-term and apparently started a fall. He was guided to the floor and then to a chair. Did not hit his head. Patient appears to have some pain to the right hip. Here for evaluation of the right hip. 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 He does not seem to be uncomfortable. Timing/Duration: this afternoon Severity: mild Location: hip (R) Method of Injury: direct blow, fell Allergies and Home Medications Allergies Coded Allergies: donepezil (Verified Allergy, Unknown, 04/05/16) Home Medications Acetaminophen 500 Mg Tablet, 1,000 MG PO Q6H PRN for PAIN, (Reported) Alprazolam 0.5 Mg Tablet, 0.5 MG PO QID PRN for ANXIETY, (Reported) Bisacodyl 10 Mg Supp.rect, 10 MG RC DAILY PRN PRN for CONSTIPATION, (Reported) Diphenhydramine HCl 25 Mg Capsule, 25 MG PO Q6H PRN for ITCHING, (Reported) Escitalopram Oxalate 20 Mg Tablet, 20 MG PO HS, (Reported) Fluticasone Propionate 9.9 Ml [place].susp, 9.9 ML NS DAILY, (Reported) Levothyroxine Sodium 25 Mcg Tablet, 25 MCG PO DAILY, (Reported) Magnesium Hydroxide 400 Mg/5 Ml Oral.susp, 30 ML PO DAILY PRN for CONSTIPATION, (Reported) Melatonin 5 Mg Tablet, 6 MG PO HS, (Reported) Memantine HCl 10 Mg Tablet, 10 MG PO BID, (Reported) Polyethylene Glycol 3350 17 Gm Powd.pack, 17 GM PO DAILY, (Reported) Promethazine/Phenyleph/Codeine 118 Ml Syrup, 5 ML PO Q6H PRN for COUGH, ( Reported) Rivastigmine 9.5 Mg Patch, 9.5 MG TD, (Reported) Tolterodine Tartrate 2 Mg Tablet, 2 MG PO BID, (Reported) Trazodone HCl 100 Mg Tablet, 100 MG PO HS, (Reported) Constitutional: see HPI, No chills, No fever Respiratory: no symptoms reported Cardiovascular: no symptoms reported Musculoskeletal: see HPI Other Unable to complete review of systems due to advanced dementia Past Qedzpow-Xojgtz-Rwsgqp Hx Patient Social History Alcohol Use: Denies Use Recreational Drug Use: No Smoking Status: Unknown if Ever Smoked Recent Foreign Travel: No Contact w/Someone Who Travel: No Recent Infectious Disease Expo: No Recent Hopitalizations: No Immunizations Up To Date Tetanus Booster (TDap): Unknown Date of Pneumonia Vaccine: Jan 18, 2016 Seasonal Allergies Seasonal Allergies: No Surgeries HX Surgeries: No (UNKNOWN) Respiratory Hx Respiratory Disorders: No Cardiovascular Hx Cardiac Disorders: No Neurological Hx Neurological Disorders: Yes Neurological Disorders: Dementia Reproductive System Hx Reproductive Disorders: No Genitourinary Hx Genitourinary Disorders: No Gastrointestinal Hx Gastrointestinal Disorders: Yes Gastrointestinal Disorders: Gastroesophageal Reflux, Chronic Constipation Musculoskeletal Hx Musculoskeletal Disorders: No Musculoskeletal Disorders: Chronic Back Pain Endocrine Hx Endocrine Disorders: Yes Endocrine Disorders: Hypothyroidsim HEENT HX ENT Disorders: No Cancer Hx Cancer: No Psychosocial Hx Psychiatric Problems: Yes Behavioral Health Disorders: Anxiety, Depression Integumentary HX Skin/Integumentary Disorder: No Blood Transfusions Hx Blood Disorders: No Reviewed Nursing Assessment Reviewed/Agree w Nursing PMH: Yes Family Medical History Significant Family History: No Pertinent Family Hx Physical Exam Vital Signs Vital Sign - Last 12Hours 01/22/17 13:14 Temp 96.8 Pulse 78 Resp 18 B/P (MAP) 115/85 Capillary Refill : Less Than 3 Seconds General Appearance: No Apparent Distress, WD/WN Cardiovascular: Regular Rate, Rhythm, No Murmur Respiratory: Lungs Clear, Normal Breath Sounds Gastrointestinal: Non Tender, Soft Extremity: Non Tender, Pelvis Stable Neurologic/Psychiatric: Other (awake but nonverbal which is at baseline.) Skin: Normal Color, Warm/Dry Progress/Results/Core Measures Results/Orders My Orders Orders - DAYNE ALVAREZ MD Pelvis/Neema Hips 5> Views (01/22/17 13:19) Vital Signs/I&O Vital Sign - Last 12Hours 01/22/17 13:14 Temp 96.8 Pulse 78 Resp 18 B/P (MAP) 115/85 Blood Pressure Mean: 95 Progress Note : Progress Note Seen and evaluated. X-ray pelvis and bilateral hips ordered. No acute findings. Discharge back to long-term with return precautions. Caregiver verbalized understanding instructions and agreement with plan. Diagnostic Imaging Diagonstic Imaging: Xray Plain Films/CT/US/NM/MRI: pelvis, hip Comments VIA [facility]. [place], [place] NAME: SHIVAM LARIOS [facility] REC#: [id number] PT STATUS: REG ER : 1930 PHYSICIAN: DAYNE ALVAREZ MD ADMIT DATE: 01/22/17/ER Draft Date of Exam:01/22/17 PELVIS/NEEMA HIPS 5> VIEWS AP view of the pelvis and bilateral hip radiographs. INDICATION: Fall. FINDINGS: There is mild degenerative changes in the hip joints. There is mild degenerative change in the SI joints with normal alignment. No subluxation or dislocation. There is no fracture seen. No radiopaque foreign body. IMPRESSION: No acute process. Dictated on workstation # [id number] Dict: 01/22/17 1400 Trans: 01/22/17 1404 [facility] [phone] Interpreted by: AUGUSTO CARROLL MD Electronically signed by: Reviewed: Reviewed by Me Departure Impression Impression: Primary Impression: Contusion of right hip Qualified Codes: S70.01XA - Contusion of right hip, initial encounter Disposition: 01 HOME, SELF-CARE Condition: Improved Departure-Patient Inst. Decision time for Depature: 14:16 Referrals: SHAKIRA PLEITEZ DO (PCP/Family) Primary Care Physician Patient Instructions: Contusion (DC) Add. Discharge Instructions: All discharge instructions reviewed with patient and/or family. Voiced understanding. Continue home medications as directed. Follow-up with your DrShin in a few days for recheck. Return for worse pain, swelling, weakness or other concerns as needed. DAYNE ALVAREZ MD Jan 22, 2017 13:28
--- NOTE | 2017-01-22 14:04 | Diagnostic Imaging Report ---
AP view of the pelvis and bilateral hip radiographs. INDICATION: Fall. FINDINGS: There is mild degenerative changes in the hip joints. There is mild degenerative change in the SI joints with normal alignment. No subluxation or dislocation. There is no fracture seen. No radiopaque foreign body. IMPRESSION: No acute process. Dictated by: Dictated on workstation # [id number]
[2017-01-22 14:20] VITALS: BP 115/85
== END 2017-01-22 14:26 | disposition home or self-care (01) ==
LOC: EDUNIT# 12:44 → ER 12:46
DX: S70.01XA Contusion of right hip, initial encounter (principal); F41.8 Other specified anxiety disorders; E03.9 Hypothyroidism, unspecified; G89.29 Other chronic pain; M54.9 Dorsalgia, unspecified; K59.09 Other constipation; K21.9 Gastro-esophageal reflux disease without esophagitis; F03.90 Unspecified dementia, unspecified severity, without behavioral disturbance, psychotic disturbance, mood disturbance, and anxiety; W18.30XA Fall on same level, unspecified, initial encounter
CPT/HCPCS: 73523; 99283

== ENCOUNTER → 2017-09-27 | Outpatient (CLI) | payer MEDICARE, MEDICAID ==
[2017-09-27 10:40] LABS: BILIRUBIN,URINE NEGATIVE (NEGATIVE); CLARITY,URINE SLIGHTLY CLOUDY; COLOR,URINE YELLOW; GLUCOSE, URINE (UA) NEGATIVE (NEGATIVE); KETONES,URINE NEGATIVE (NEGATIVE); LEUKOCYTE ESTERASE ,URINE NEGATIVE (NEGATIVE); NITRITE,URINE NEGATIVE (NEGATIVE); PH,URINE 6.5 (5-9); PROTEIN,URINE NEGATIVE (NEGATIVE); UROBILINOGEN,URINE NORMAL (NORMAL)
[2017-09-27 10:48] LABS: BACTERIA,URINE NEGATIVE /HPF
== END ==
LOC: LABNPT 10:28
PROVIDERS: ATTEND Family Medicine
DX: Z87.440 Personal history of urinary (tract) infections (principal)
CPT/HCPCS: 81000

== ENCOUNTER 2018-08-24 16:33 | Emergency (ER) | payer MEDICARE, MEDICAID ==
[~2018-08-24] VITALS: Ht 167.6 cm; Wt 61.2 kg
[~2018-08-24 16:33] MED LIST changes: -PHEN118S12 PO; +PHEN118S29 PO; +TRAZ-190 PO; -TRAZ100T92 PO
--- OUTSIDE RECORDS SUMMARY | 2018-08-24 16:39 | XMS REPORT | Continuity of Care Document ---
Author Author [facility] Address Unknown Phone Unavailable Allergies Active Description Code Type Severity Reaction Onset Reported/Identified Relationship to Patient Clinical Status Yes No known drug allergies 66280825 Drug Allergy N/A N/A Confirmed but inactive Yes Aricept 40367 Drug Allergy Moderate Rash~Swelling/Edema~itching 2012 Medications There is no data. 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 09/28/2013 CIRO [...] Procedures Code [place] [address] ROUTINE VENIPUNCTURE SAM PUGH DO 04/24/2012 61244 COMPREHEN METABOLIC PANEL SAM PUGH DO 04/24/2012 56028 ASSAY OF TOTAL TESTOSTERONE SAM PUGH DO 04/24/2012 99362 ASSAY THYROID STIM HORMONE SAM PUGH DO 04/24/2012 92077 COMPLETE CBC W/AUTO DIFF WBC SAM PUGH DO 04/24/2012 07629 CHEST X-RAY SAM PUGH DO 08/08/2012 49411 COMPREHEN METABOLIC PANEL SAM PUGH DO 08/08/2012 34763 NATRIURETIC PEPTIDE SAM PUGH DO 08/08/2012 42223 BL SMEAR W/DIFF WBC COUNT FANI HOOVER 08/08/2012 60702 COMPLETE CBC, AUTOMATED FANI HOOVER L 08/08/2012 24150 MYCOPLASMA ANTIBODY SAM PUGH DO 08/08/2012 66417 EMERGENCY DEPT VISIT FANI HOOVER 08/08/2012 82121 EMERGENCY DEPT VISIT FANI HOOVER 08/08/2012 39220 EMERGENCY DEPT VISIT FARHAN SULTANA, KIKI Miller 09/25/[address] HEAD/BRAIN W/O & W/BERNARDO REAL MD, KIKI Miller 09/25/2013 50319 CHEST X-RAY FARHAN SULTANA, KIKI Miller 09/25/[address] THORAX W/BERNARDO REAL MD, KIKI Miller 09/25/2013 15238 COMPREHEN METABOLIC PANEL FARHAN SULTANA, KIKI Miller 09/25/2013 94542 COMPLETE CBC W/AUTO DIFF WBC FARHAN SULTANA, KIKI Miller 09/25/2013 65583 MYCOPLASMA ANTIBODY FARHAN SULTANA, KIKI Miller 09/25/2013 08031 BLOOD CULTURE FOR BACTERIA FARHAN SULTANA, KIKI Miller 09/25/2013 32570 AG DETECT NOS, EIA, KOMAL REAL MD, KIKI Miller 09/25/2013 65124 INFLUENZA ASSAY W/OPTIC FARHAN SULTANA, KIKI Millre 09/25/2013 01731 EMERGENCY DEPT VISIT FARHAN SULTANA, KIKI Miller 09/25/2013 Q9966 LOCM 200-299MG/ML IODINE, 1ML FARHAN SULTANA, KIKI Miller 09/25/2013 21575 WITHDRAWAL OF ARTERIAL BLOOD BEN SULTANA, CIRO Flowers 10/17/2013 05751 CHEST X-RAY BEN SULTANA, CIRO Flowers 10/17/2013 70481 COMPREHEN METABOLIC PANEL BEN SULTANA, CIRO Flowers 10/17/2013 79364 BLOOD GASES: PH, PO2 & PCO2 BEN SULTANA, CIRO Flowers 10/17/2013 60338 COMPLETE CBC W/AUTO DIFF WBC BEN SULTANA, CIRO Flowers 10/17/2013 60241 MYCOPLASMA ANTIBODY BEN SULTANA, CIRO Flowers 10/17/2013 38279 EMERGENCY DEPT VISIT FARHAN SULTANA, KIKI Miller 10/17/2013 32425 EMERGENCY DEPT VISIT FARHAN SULTANA, KIKI Miller 10/17/2013 49328 ECG MONITOR/RECORD, 24 HRS BEN SULTANA, CIRO Flowers 10/25/2013 44187 CHEST X-RAY CIRO CONTRERAS MD 01/29/2014 60644 X-RAY EXAM OF SHOULDER CIRO CONTRERAS MD 01/29/2014 61252 THER/PROPH/DIAG INJ, SC/IM DAYANARA POTTER MDWALDO Linnette 01/29/2014 67084 EMERGENCY DEPT VISIT ELIZABETH POTTER MD 01/29/2014 A9270 NON-COVERED ITEM OR SERVICE ABBEY SULTANA, ELIZABETH Anglin 01/29/2014 J0696 CEFTRIAXONE SODIUM INJECTION ELIZABETH POTTER MD 01/29/2014 J1885 KETOROLAC TROMETHAMINE INJ ELIZABETH POTTER MD 01/29/2014 70872 EMERGENCY DEPT VISIT ELIZABETH POTTER MD 01/29/2014 29669 ROUTINE VENIPUNCTURE CIRO CONTRERAS MD 10/21/2014 16456 COMPREHEN METABOLIC PANEL CIRO CONTRERAS MD 10/21/2014 95542 ASSAY OF VITAMIN D CIRO CONTRERAS MD 10/21/2014 85413 VITAMIN B-12 CIRO CONTRERAS MD 10/21/2014 05142 ASSAY OF MAGNESIUM CIRO CONTRERAS MD 10/21/2014 67842 ASSAY OF FREE THYROXINE CIRO CONTRERAS MD 10/21/2014 93409 ASSAY THYROID STIM HORMONE ICRO CONTRERAS MD 10/21/2014 50430 COMPLETE CBC W/AUTO DIFF WBC CIRO CONTRERAS MD 10/21/2014 76779 ROUTINE VENIPUNCTURE CIRO CONTRERAS MD 08/19/2015 77739 WITHDRAWAL OF ARTERIAL BLOOD CIRO CONTRERAS MD 08/19/2015 59650 CHEST X-RAY 1 VIEW FRONTAL CIRO CONTRERAS MD 08/19/2015 30939 COMPREHEN METABOLIC PANEL CIRO CONTRERAS MD 08/19/2015 57009 BLOOD GASES ANY COMBINATION CIRO CONTRERAS MD 08/19/2015 09847 ASSAY OF LACTIC ACID CIRO CONTRERAS MD 08/19/2015 19345 ASSAY OF NATRIURETIC PEPTIDE CIRO CONTRERAS MD 08/19/2015 35489 COMPLETE CBC W/AUTO DIFF WBC CIRO CONTRERAS MD 08/19/2015 28194 MYCOPLASMA ANTIBODY BEN SULTANA, [facility] 08/19/2015 26479 AIRWAY INHALATION TREATMENT BEN SULTANA, [facility] 08/19/2015 36999 TX/PRO/DX 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 CONTRERAS MD, [facility] 08/19/2015 67762 EMERGENCY DEPT VISIT BEN SULTANA, [facility] 08/19/2015 A9270 NON-COVERED ITEM OR SERVICE ABBEY SULTANA, [facility] 08/19/2015 G0378 HOSPITAL OBSERVATION PER HR BEN SULTANA, [facility] 08/19/2015 J0696 CEFTRIAXONE SODIUM INJECTION ABBEY SULTANA, [facility] 08/19/2015 J7030 NORMAL SALINE SOLUTION NAPOLEON POTTER MD, [facility] 08/19/2015 J7050 NORMAL SALINE SOLUTION NAPOLEON POTTER MD, [facility] 08/19/2015 78496 EMERGENCY DEPT VISIT ABBEY SULTANA, [facility] 08/19/2015 28936 URINALYSIS AUTO W/SCOPE BEN SULTANA, [facility] 08/20/2015 34668 CULTURE OTHR SPECIMN AEROBIC BEN SULTANA [facility] 08/20/2015 05540 CULTURE AEROBIC IDENTIFY BEN SULTANA, [facility] 08/20/2015 16670 SMEAR GRAM STAIN BEN SULTANA, [facility] 08/20/2015 95672 AIRWAY INHALATION TREATMENT BEN SULTANA, [facility] 08/20/2015 17979 THER/PROPH/DIAG IV INF INIT BEN SULTANA [facility] 08/20/2015 A9270 NON-COVERED ITEM OR SERVICE ABBEY SULTANA, [facility] 08/20/2015 J0696 CEFTRIAXONE SODIUM INJECTION ABBEY SULTANA, [facility] 08/20/2015 J7030 NORMAL SALINE SOLUTION NAPOLEON POTTER MD, [facility] 08/20/2015 J7050 NORMAL SALINE SOLUTION NAPOLEON POTTER MD, [facility] 08/20/2015 Results Test Result Range COMPLETE BLOOD COUNT - 09/25/13 10:23 Platelet 239 10^3u 142-424 MPV 8.9 FL 9.4-12.4 [place] # 0.70 10^3u 0.0-1.0 RBC 4.24 10^6u 4.04-6.13 [place] % 9.6 % 0-12 RDW 14.2 % [...] Urobilinogen 0.2 0.2-1.0 Urine RBC N0-2 Specific [place] <=1.005 1.010-1.020 Urine WBC N0-2 Blood 1+ Negative Color Yellow Yellow SG by Refractometer 1.050 Bilirubin Negative Negative Strep Pneumo Ag, Urine - 09/25/13 15:49 Strep Pneumo Ag, Urine NEG Negative COMPLETE BLOOD COUNT - 09/27/13 05:42 Platelet 251 10^3u 142-424 MPV 8.8 FL 9.4-12.4 [place] # 0.60 10^3u 0.0-1.0 RBC 4.00 10^6u 4.04-6.13 [place] % 9.0 % 0-12 RDW 14.4 % [...] 266 10^3u 142-424 MPV 8.8 FL 9.4-12.4 [place] # 0.64 10^3u 0.0-1.0 RBC 4.24 10^6u 4.04-6.13 [place] % 10.1 % 0-12 RDW 14.5 % [...] 231 10^3u 142-424 MPV 9.2 FL 9.4-12.4 [place] # 0.69 10^3u 0.0-1.0 RBC 4.20 10^6u 4.04-6.13 [place] % 10.9 % 0-12 RDW 14.6 % [...] 249 10^3u 142-424 MPV 9.8 FL 9.4-12.4 [place] # 0.61 10^3u 0.0-1.0 RBC 4.29 10^6u 4.04-6.13 [place] % 11.9 % 0-12 RDW 13.5 % [...] 312 10^3u 142-424 MPV 8.9 FL 9.4-12.4 [place] # 0.92 10^3u 0.0-1.0 RBC 3.98 10^6u 4.04-6.13 [place] % 9.3 % 0-12 RDW 14.3 % [...] Urobilinogen 0.2 0.2-1.0 Urine RBC N3-5 Specific [place] 1.025 1.010-1.020 Urine WBC NONESEEN Blood 1+ Negative Color Yellow Yellow Bilirubin Negative Negative Site UNK Encounters ACCT No. Visit Date/Time Discharge Status Pt. Type Provider Facility Loc./Unit Complaint [id number] 08/19/2015 14:20:00 08/20/2015 18:40:00 DIS Outpatient CIRO CONTRERAS [place] [address] [id number] 08/19/2015 14:07:00 08/19/2015 14:07:00 DIS Outpatient CIRO CONTRERAS MD [id number] 08/19/2015 13:40:00 08/19/2015 13:40:00 DIS Outpatient BEN SULTANA, [facility] OTHER [id number] 10/21/2014 12:53:00 10/21/2014 23:59:59 CLS Outpatient BEN SULTANA, [facility] OTHER [id number] 01/29/2014 21:46:00 01/30/2014 22:14:00 DIS Emergency ABBEY SULTANA, [facility] ER [id number] 01/29/2014 22:15:00 01/29/2014 22:15:00 DIS Outpatient ABBEY SULTANA, [facility] OTHER [id number] 10/25/2013 10:45:00 10/25/2013 10:45:00 DIS Outpatient BEN SULTANA, [facility] OTHER [id number] 10/17/2013 09:00:00 10/17/2013 10:25:00 DIS Emergency FARHAN SULTANA, [facility] ER [id number] 10/17/2013 09:30:00 10/17/2013 09:30:00 DIS Outpatient FARHAN SULTANA, [facility] OTHER [id number] 09/25/2013 12:45:00 09/28/2013 16:15:00 DIS Inpatient BEN SULTANA, [facility] NS1 [id number] 09/25/2013 09:50:00 09/25/2013 12:44:00 DIS Emergency FARHAN SULTANA, [facility] OTHER [id number] 09/25/2013 10:05:00 09/25/2013 10:05:00 DIS Outpatient FARHAN SULTANA, [facility] OTHER [id number] 08/08/2012 19:55:00 08/08/2012 23:59:59 CLS Emergency [id number] 08/08/2012 19:55:00 08/08/2012 23:59:59 CLS Outpatient [id number] 04/24/2012 11:26:00 04/24/2012 23:59:59 CLS Outpatient [id number] 08/14/2012 14:15:00 Inpatient KIKI REAL MD [id number] 08/08/2012 21:15:00 Inpatient SAM PUGH DO [facility] 10/21/2014 12:54:48 ACT Document Registration
[2018-08-24 16:49] LABS: BILIRUBIN,URINE NEGATIVE (NEGATIVE); CLARITY,URINE CLEAR; COLOR,URINE YELLOW; GLUCOSE, URINE (UA) NEGATIVE (NEGATIVE); KETONES,URINE NEGATIVE (NEGATIVE); LEUKOCYTE ESTERASE ,URINE 3+ (NEGATIVE); NITRITE,URINE NEGATIVE (NEGATIVE); PH,URINE 5 (5-9); PROTEIN,URINE 2+ (NEGATIVE); UROBILINOGEN,URINE NORMAL (NORMAL)
--- NOTE | 2018-08-24 16:53 | NUR ---
SEE LIST FROM [facility]
[2018-08-24 17:03] LABS: BACTERIA,URINE TRACE /HPF; WBC,URINE 25-50 /HPF
--- NOTE | 2018-08-24 17:43 | Diagnostic Imaging Report ---
INDICATION: Bilateral hip pain. COMPARISON: 01/22/2017. FINDINGS: AP view of the pelvis and multiple dedicated radiographic views of the bilateral hips were obtained. There is no fracture, dislocation, bone destruction, or radiopaque foreign body. No significant radiographic degenerative changes are present in the hip joints. The visualized pelvic osseous structures and the SI joints demonstrate no acute fracture or dislocation. There is no bone destruction or radiopaque foreign body. The surrounding soft tissue structures are unremarkable. Large amount of air and stool is noted scattered throughout the colon. IMPRESSION: 1. Unremarkable radiographic exam of the pelvis and bilateral hips. 2. Large amount of colonic air and stool. Please correlate for underlying constipation. Dictated by: Dictated on workstation # [id number]
[2018-08-24] MEDS ORDERED: SULF1TAB35 PO (18:15)
--- NOTE | 2018-08-24 18:15 | ED Fall/Injury ---
General Chief Complaint: Trauma-Non Activation Stated Complaint: FALL Nursing Triage Note: PT ARRIVED PER EMS, PT FELL AT MA ONTO BUTTOCKS, PT HAS NO CO OF PAIN, STAFF DENIES PT HITTING HEAD Source: EMS, senior living records Exam Limitations: no limitations History of Present Illness Date Seen by Provider: Aug 24, 2018 Time Seen by Provider: 16:45 Initial Comments 87-year-old male who is brought into the emergency room by [facility] with reports of fall onto his buttocks from a standing position just prior to arrival at [facility]. The patient has no complaints of pain. Staff denies hitting his head. Dr. Pleitez would like the patient evaluated for urinary tract infection and x-rays of his hips bilaterally. Occurred: just prior to arrival Injuries/Pain Location: no injury Context: tripped Loss of Consciousness: no loss of consciousness Associated Symptoms (Fall): Denies Symptoms Allergies and Home Medications Allergies Coded Allergies: donepezil (Verified Allergy, Unknown, 04/05/16) Home Medications Acetaminophen 500 Mg Tablet, 1,000 MG PO Q6H PRN for PAIN, (Reported) Alprazolam 0.5 Mg Tablet, 0.5 MG PO QID PRN for ANXIETY, (Reported) Bisacodyl 10 Mg Supp.rect, 10 MG RC DAILY PRN PRN for CONSTIPATION, (Reported) Diphenhydramine HCl 25 Mg Capsule, 25 MG PO Q6H PRN for ITCHING, (Reported) Escitalopram Oxalate 20 Mg Tablet, 20 MG PO HS, (Reported) Fluticasone Propionate 9.9 Ml [place].susp, 9.9 ML NS DAILY, (Reported) Levothyroxine Sodium 25 Mcg Tablet, 25 MCG PO DAILY, (Reported) Magnesium Hydroxide 400 Mg/5 Ml Oral.susp, 30 ML PO DAILY PRN for CONSTIPATION, (Reported) Melatonin 5 Mg Tablet, 6 MG PO HS, (Reported) Memantine HCl 10 Mg Tablet, 10 MG PO BID, (Reported) Polyethylene Glycol 3350 17 Gm Powd.pack, 17 GM PO DAILY, (Reported) Promethazine/Phenyleph/Codeine 118 Ml Syrup, 5 ML PO Q6H PRN for COUGH, ( Reported) Tolterodine Tartrate 2 Mg Tablet, 2 MG PO BID, (Reported) Trazodone HCl 100 Mg Tablet, 100 MG PO HS, (Reported) Past Gxxcppf-Ikocfo-Umhioo Hx Patient Social History Alcohol Use: Denies Use Recreational Drug Use: No Smoking Status: Never a Smoker Recent Foreign Travel: No Contact w/Someone Who Travel: No Recent Infectious Disease Expo: No Recent Hopitalizations: No Immunizations Up To Date Tetanus Booster (TDap): Unknown Date of Pneumonia Vaccine: Jan 18, 2016 Seasonal Allergies Seasonal Allergies: No Past Medical History Surgeries: No (UNKNOWN, poor historian) Respiratory: No Cardiac: No Neurological: Yes Dementia Reproductive Disorders: No Gastrointestinal: Yes Gastroesophageal Reflux, Chronic Constipation Musculoskeletal: Yes Chronic Back Pain Endocrine: Yes Hypothyroidsim HEENT: No Cancer: No Psychosocial: Yes Anxiety, Depression Integumentary: No Blood Disorders: No Family Medical History No Pertinent Family Hx Physical Exam Vital Signs Vital Signs - First Documented 08/24/18 16:35 Temp 97.9 Pulse 73 Resp 18 B/P (MAP) 124/89 (101) Pulse Ox 92 Capillary Refill : Less Than 3 Seconds Height, Weight, BMI Height: 5'6.00" Weight: 135lbs. oz. 61.915827on; BMI Method:Estimated Progress/Results/Core Measures Results/Orders Lab Results Laboratory Tests Test 08/24/18 16:43 Range/Units Urine Color YELLOW Urine Clarity CLEAR Urine pH 5 5-9 Urine Specific [place] 1.020 1.016-1.022 Urine Protein 2+ H NEGATIVE Urine Glucose (UA) NEGATIVE NEGATIVE Urine Ketones NEGATIVE NEGATIVE Urine Nitrite NEGATIVE NEGATIVE Urine Bilirubin NEGATIVE NEGATIVE Urine Urobilinogen NORMAL NORMAL MG/DL Urine Leukocyte Esterase 3+ H NEGATIVE Urine RBC (Auto) 2+ H NEGATIVE Urine RBC 2-5 H /HPF Urine WBC 25-50 H /HPF Urine Squamous Epithelial Cells NONE /HPF Urine Crystals NONE /LPF Urine Bacteria TRACE /HPF Urine Casts NONE /LPF Urine Mucus NEGATIVE /LPF Urine Culture Indicated YES My Orders Orders - DOREEN MCCORMACK Ua Culture If Indicated (08/24/18 16:44) Pelvis/[place] Hips 5> Views (08/24/18 16:44) Urine Culture (08/24/18 16:43) Vital Signs/I&O 08/24/18 16:35 Temp 97.9 Pulse 73 Resp 18 B/P (MAP) 124/89 (101) Pulse Ox 92 Blood Pressure Mean: 101 Departure Impression Primary Impression: Urinary tract infection Additional Impression: Fall on same level Disposition: 01 HOME, SELF-CARE Condition: Stable/Unchanged Departure-Patient Inst. Decision time for Depature: 18:13 Referrals: SHAKIRA PLEITEZ DO (PCP/Family) Primary Care Physician Patient Instructions: Preventing Falls, Urinary Tract Infection, Adult (DC) Add. Discharge Instructions: Take medication as directed. Follow-up with Dr. Pleitez within 1 week for recheck. Return back to the emergency room for worsening symptoms or concerns as needed. All discharge instructions reviewed with patient and/or family. Voiced understanding. Scripts Sulfamethoxazole/Trimethoprim (Bactrim Ds Tablet) 1 Each Tablet 1 EACH PO BID for 7 Days, #14 TAB Prov: DOREEN MCCORMACK 08/24/18 DOREEN MCCORMACK Aug 24, 2018 18:15
[2018-08-24 18:49] VITALS: BP 124/89
== END 2018-08-24 19:10 | disposition home or self-care (01) ==
LOC: EDUNIT# 16:33 → ER 16:34
DX: M25.551 Pain in right hip (principal); M25.552 Pain in left hip; N39.0 Urinary tract infection, site not specified; F03.90 Unspecified dementia, unspecified severity, without behavioral disturbance, psychotic disturbance, mood disturbance, and anxiety; K21.9 Gastro-esophageal reflux disease without esophagitis; E03.9 Hypothyroidism, unspecified; F41.9 Anxiety disorder, unspecified; F32.9 Major depressive disorder, single episode, unspecified; Z87.19 Personal history of other diseases of the digestive system; Z87.440 Personal history of urinary (tract) infections; Z88.8 Allergy status to other drugs, medicaments and biological substances; Z79.51 Long term (current) use of inhaled steroids; W01.0XXA Fall on same level from slipping, tripping and stumbling without subsequent striking against object, initial encounter
CPT/HCPCS: 73523; 81000; 87077; 87088

== ENCOUNTER 2019-01-13 16:55 | Emergency (ER) | payer MEDICARE, MEDICAID ==
[~2019-01-13] VITALS: Ht 167.6 cm; Wt 61.2 kg
[~2019-01-13 16:55] MED LIST changes: +SULF1TAB35 PO
[2019-01-13] MEDS ORDERED: TETANUS,DIPTH,PERTUSS P/F (BOOSTRIX) 0.5 ML VIAL IM ONE (17:15)
--- NOTE | 2019-01-13 18:04 | Diagnostic Imaging Report ---
CLINICAL INDICATION: Patient found on floor. Patient has laceration to forehead. Exam: Head CT without IV contrast. Axial CT scan of the cervical spine with sagittal and coronal reformations. Comparison: Head CT without contrast dated 12/26/2016. Findings: Head CT: There is no evidence of acute cerebral infarct, intracranial hemorrhage, or gross mass effect. Stable diffuse brain parenchymal volume loss with the bilateral temporal lobes affected the most. There is subtle low-attenuation white matter changes involving both cerebral hemispheres, likely representing chronic small vessel ischemic disease. There is normal manriquez-white matter distinction. There is no significant midline shift or herniation. There is no evidence of hydrocephalus. The basal cisterns are unremarkable. There is a small area of extracranial soft tissue swelling involving the right frontal/forehead region. There is no skull fracture. Otherwise, the skull, extracranial soft tissue, and orbits are unremarkable. The paranasal sinuses are unremarkable. Temporal bones show no significant abnormality. Cervical spine: There is no acute cervical spine fracture. There is grade 1 anterolisthesis of C7 on T1 with no pars defect seen and is likely degenerative. There are cervical spine vertebral body spurs and facet arthropathy. There is multilevel neural foramen narrowing noted. There is at least mild bony central canal narrowing at the C5-C6 and C6-C7 levels. There is no significant neck soft tissue abnormality. Visualized upper lung tyler are clear. Impression: 1: There is no evidence of acute intracranial process. There is no skull fracture. 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 3: Severe brain parenchymal volume loss with the temporal lobes affected the most. Dictated by: Dictated on workstation # [id number]
--- NOTE | 2019-01-13 18:11 | ED Fall/Injury ---
General Chief Complaint: Trauma-Non Activation Stated Complaint: FALL Nursing Triage Note: TO ROOM PER EMS FROM [facility] WAS FOUND ON FLOOR PATIENT DOSEN'T SPEAK OR COMMUNITATE. HIS NORMAL SELF. LACERATION TO FOEHEAD. History of Present Illness Date Seen by Provider: Jan 13, 2019 Time Seen by Provider: 17:00 Initial Comments 88-year-old male from [facility] was found on the floor. The patient is not communicative and does not respond to verbal or painful stimuli. Small abrasion to the right frontal lobe with hematoma noted. Tetanus status, unknown Occurred: just prior to arrival Injuries/Pain Location: head (right frontal lobe) Loss of Consciousness: unsure Associated Symptoms (Fall): Denies Symptoms Allergies and Home Medications Allergies Coded Allergies: donepezil (Verified Allergy, Unknown, 04/05/16) Home Medications Acetaminophen 500 Mg Tablet, 1,000 MG PO Q6H PRN for PAIN, (Reported) Alprazolam 0.5 Mg Tablet, 0.5 MG PO QID PRN for ANXIETY, (Reported) Bisacodyl 10 Mg Supp.rect, 10 MG RC DAILY PRN PRN for CONSTIPATION, (Reported) Diphenhydramine HCl 25 Mg Capsule, 25 MG PO Q6H PRN for ITCHING, (Reported) Escitalopram Oxalate 20 Mg Tablet, 20 MG PO HS, (Reported) Fluticasone Propionate 9.9 Ml [place].susp, 9.9 ML NS DAILY, (Reported) Levothyroxine Sodium 25 Mcg Tablet, 25 MCG PO DAILY, (Reported) Magnesium Hydroxide 400 Mg/5 Ml Oral.susp, 30 ML PO DAILY PRN for CONSTIPATION, (Reported) Melatonin 5 Mg Tablet, 6 MG PO HS, (Reported) Memantine HCl 10 Mg Tablet, 10 MG PO BID, (Reported) Polyethylene Glycol 3350 17 Gm Powd.pack, 17 GM PO DAILY, (Reported) Promethazine/Phenyleph/Codeine 118 Ml Syrup, 5 ML PO Q6H PRN for COUGH, (Reported) Sulfamethoxazole/Trimethoprim 1 Each Tablet, 1 EACH PO BID Prescribed by: DOREEN MCCORMACK on 08/24/181814 Tolterodine Tartrate 2 Mg Tablet, 2 MG PO BID, (Reported) Trazodone HCl 100 Mg Tablet, 100 MG PO HS, (Reported) Patient Home Medication List Home Medication List Reviewed: Yes Review of Systems Review of Systems Constitutional: no symptoms reported, see HPI Skin: see HPI, other (abrasion to right frontlal lobe) All Other Systems Reviewed Negative Unless Noted: Yes Past Bfzkafk-Wyzrae-Hbglxc Hx Past Med/Social Hx: Reviewed Nursing Past Med/Soc Hx Patient Social History Alcohol Use: Denies Use Recreational Drug Use: No Smoking Status: Never a Smoker Recent Foreign Travel: No Contact w/Someone Who Travel: No Recent Infectious Disease Expo: No Recent Hopitalizations: No Immunizations Up To Date Tetanus Booster (TDap): Unknown Date of Pneumonia Vaccine: Jan 18, 2016 Seasonal Allergies Seasonal Allergies: No Past Medical History Surgeries: No (UNKNOWN, poor historian) Respiratory: No Cardiac: No Neurological: Yes Dementia Reproductive Disorders: No Gastrointestinal: Yes Gastroesophageal Reflux, Chronic Constipation Musculoskeletal: Yes Chronic Back Pain Endocrine: Yes Hypothyroidsim HEENT: No Cancer: No Psychosocial: Yes Anxiety, Depression Integumentary: No Blood Disorders: No Family Medical History No Pertinent Family Hx Physical Exam Vital Signs Vital Signs - First Documented 01/13/19 16:55 Temp 98.0 Pulse 70 Resp 18 B/P (MAP) 126/70 (88) Pulse Ox 96 O2 Delivery Room Air Capillary Refill : Less Than 3 Seconds Height, Weight, BMI Height: 5'6.00" Weight: 135lbs. oz. 61.073023fm; BMI Method:Estimated General Appearance: WD/WN, no apparent distress HEENT: normal ENT inspection Neck: non-tender, normal inspection, other (C collar on. ) Cardiovascular: normal peripheral pulses, regular rate, rhythm Respiratory: chest non-tender, lungs clear, normal breath sounds Gastrointestinal: normal bowel sounds, non tender, soft Extremities: normal range of motion, non-tender, normal inspection, normal capillary refill, pelvis stable, other (Pt with some contractures. ) Neurologic/Psychiatric: no motor/sensory deficits Skin: normal color, warm/dry Progress/Results/Core Measures Results/Orders My Orders Orders - MYKEL BLACK Ct Head/Cervical Spine Wo (01/13/19 17:05) Dipht,Pertuss(Acell),Tet Adult (Boostrix (01/13/19 17:15) Medications Given in ED Current Medications Medications Dose Ordered Sig/Hyun Route Start Time Stop Time Status Last Admin Dose Admin Diphtheria/ Tetanus/Acell Pertussis 0.5 ml ONCE ONCE IM 01/13/19 17:15 01/13/19 17:16 DC 01/13/19 18:30 0.5 ML Vital Signs/I&O 01/13/19 01/13/19 16:55 18:50 Temp 98.0 Pulse 70 74 Resp 18 18 B/P (MAP) 126/70 (88) 105/89 (94) Pulse Ox 96 96 O2 Delivery Room Air Room Air Blood Pressure Mean: 88 Progress Progress Note : Time: 17:00 Progress Note Patient seen and evaluated, we'll obtain CT head and neck and reevaluate. 1844 patient's granddaughter is present at bedside, he is verbal but not coherent with most of his language. He is smiling and holding her hand. She states this is normal status for him. 1809 CT negative for acute findings. C-collar removed. 1829 discharge instructions and return precautions reviewed with the patient. The long-term care facility did not have transfer services available, the granddaughter was willing to transfer him via private vehicle. With the assistance of 2 he was able to be transferred to a wheelchair and then into her car. Report was called to [facility] and rehabilitation. Diagnostic Imaging Diagonstic Imaging: CT Plain Films/CT/US/NM/MRI: c-spine, head Comments NAME: SHIVAM LARIOS MED REC#: [id number] PT STATUS: REG ER : 1930 PHYSICIAN: MYKEL BLACK ADMIT DATE: 01/13/19/ER Draft Date of Exam:01/13/19 CT HEAD/CERVICAL SPINE WO CLINICAL INDICATION: Patient found on floor. Patient has laceration to forehead. Exam: Head CT without IV contrast. Axial CT scan of the cervical spine with sagittal and coronal reformations. Comparison: Head CT without contrast dated 12/26/2016. Findings: Head CT: There is no evidence of acute cerebral infarct, intracranial hemorrhage, or gross mass effect. Stable diffuse brain parenchymal volume loss with the bilateral temporal lobes affected the most. There is subtle low-attenuation white matter changes involving both cerebral hemispheres, likely representing chronic small vessel ischemic disease. There is normal manriquez-white matter distinction. There is no significant midline shift or herniation. There is no evidence of hydrocephalus. The basal cisterns are unremarkable. There is a small area of extracranial soft tissue swelling involving the right frontal/forehead region. There is no skull fracture. Otherwise, the skull, extracranial soft tissue, and orbits are unremarkable. The paranasal sinuses are unremarkable. Temporal bones show no significant abnormality. Cervical spine: There is no acute cervical spine fracture. There is grade 1 anterolisthesis of C7 on T1 with no pars defect seen and is likely degenerative. There are cervical spine vertebral body spurs and facet arthropathy. There is multilevel neural foramen narrowing noted. There is at least mild bony central canal narrowing at the C5-C6 and C6-C7 levels. There is no significant neck soft tissue abnormality. Visualized upper lung tyler are clear. Impression: 1: There is no evidence of acute intracranial process. There is no skull fracture. 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 3: Severe brain parenchymal volume loss with the temporal lobes affected the most. Dictated on workstation # [id number] Dict: 01/13/19 1754 Trans: 01/13/19 1803 [id number] Interpreted by: MAU BLOOD MD Electronically signed by: Departure Impression Primary Impression: Fall Qualified Codes: W19.XXXA - Unspecified fall, initial encounter Additional Impression: Abrasion head Disposition: HOME, SELF-CARE Condition: Improved Departure-Patient Inst. Decision time for Depature: 18:05 Referrals: SHAKIRA PLEITEZ DO (PCP/Family) Primary Care Physician Patient Instructions: Preventing Falls in the Older Adult, Skin Abrasions (DC) Add. Discharge Instructions: Ice to right frontal lobe 20 minutes every 2 hours while awake. Clean abrasion with soap and water, apply Band-Aid with triple antibiotic ointme nt. Safety precautions are fall prevention. Return to emergency department for urgent health care needs. All discharge instructions reviewed with patient and/or family. Voiced understanding. Copy Copies To 1: SHAKIRA PLEITEZEMYKEL Jan 13, 2019 18:11
--- NOTE | 2019-01-13 18:16 | NUR ---
RESIDENTIAL CALLED TO COME GET HIM Addendum: 01/13/19 at 1834 by PMCCLURE REPORT GIVEN TO RESIDENTIAL STAFF.
--- NOTE | 2019-01-13 18:35 | NUR ---
[facility] CALLED ZEESHAN AND TOLD HER VAN BROKE.
[2019-01-13 18:50] VITALS: BP 105/89
--- OUTSIDE RECORDS SUMMARY | 2019-01-13 23:03 | XMS REPORT | Continuity of Care Document ---
Author Organization Unknown Address Unknown Allergies There is no data. Medications There is no data. Problems There is no data. Procedures There is no data. Results There is no data. Encounters ACCT No. Visit Date/Time Discharge Status Pt. Type Provider Facility Loc./Unit Complaint [id number] 01/09/2019 09:08:32 [facility] Document Registration [id number] 01/08/2019 20:05:10 [facility] Unknown
== END 2019-01-13 18:45 | disposition home or self-care (01) ==
LOC: EDUNIT# 16:55 → ER 16:56
DX: S00.81XA Abrasion of other part of head, initial encounter (principal); F03.90 Unspecified dementia, unspecified severity, without behavioral disturbance, psychotic disturbance, mood disturbance, and anxiety; K21.9 Gastro-esophageal reflux disease without esophagitis; E03.9 Hypothyroidism, unspecified; F41.9 Anxiety disorder, unspecified; F32.9 Major depressive disorder, single episode, unspecified; Z87.19 Personal history of other diseases of the digestive system; Z88.8 Allergy status to other drugs, medicaments and biological substances; Z79.51 Long term (current) use of inhaled steroids; Z23 Encounter for immunization; W19.XXXA Unspecified fall, initial encounter
CPT/HCPCS: 70450; 72125; 90471; 90715

== ENCOUNTER 2019-04-06 02:00 | Observation (INO) | payer MEDICARE, MEDICAID ==
[~2019-04-06] VITALS: Ht 177.8 cm; Wt 64.7 kg
[2019-04-06] MEDS ORDERED: methylPREDNISolone 125 MG (Solu-MEDROL) VIAL IV STA (02:03)
[2019-04-06] MEDS ORDERED: RT-ALBUTEROL/IPRATROPIUM 3 ML (DUONEB) VIAL INH ONE ×2 (02:15→05:15)
[2019-04-06] MEDS ORDERED: RT-ALBUTEROL SULF 2.5 MG/3 ML PRE-MIX VIAL INH STA (02:27)
[2019-04-06] MEDS ORDERED: DEXAMETHASONE 4 MG/ML SDV (DECADRON) IH ONE (02:30)
[2019-04-06 02:41] LABS: BASOPHILS % (AUTO) 0 % (0-10); BILIRUBIN,URINE NEGATIVE (NEGATIVE); CLARITY,URINE CLEAR; COLOR,URINE YELLOW; EOSINOPHILS # (AUTO) 0.3 10^3/uL (0.0-0.3); EOSINOPHILS % (AUTO) 3 % (0-10); GLUCOSE, URINE (UA) NEGATIVE (NEGATIVE); HEMATOCRIT 24 % (40-54); HEMOGLOBIN 7.2 G/DL (13.3-17.7); KETONES,URINE NEGATIVE (NEGATIVE); LEUKOCYTE ESTERASE ,URINE NEGATIVE (NEGATIVE); LYMPHOCYTES # (AUTO) 1.8 X 10^3 (1.0-4.0); LYMPHOCYTES % (AUTO) 17 % (12-44); MEAN CORPUSCULAR HEMOGLOBIN 27 PG (25-34); MEAN CORPUSCULAR HGB CONC 30 G/DL (32-36); MEAN CORPUSCULAR VOLUME 91 FL (80-99); MONOCYTES # (AUTO) 1.2 X 10^3 (0.0-1.0); MONOCYTES % (AUTO) 12 % (0-12); NEUTROPHILS % (AUTO) 68 % (42-75); NITRITE,URINE NEGATIVE (NEGATIVE); PH,URINE 5 (5-9); PLATELET COUNT 424 10^3/uL (130-400); PROTEIN,URINE 2+ (NEGATIVE); RED CELL DISTRIBUTION WIDTH 15.2 % (10.0-14.5); UROBILINOGEN,URINE NORMAL (NORMAL); WHITE BLOOD COUNT 10.3 10^3/uL (4.3-11.0)
--- NOTE | 2019-04-06 02:43 | ED Respiratory ---
General Chief Complaint: Respiratory Problems Stated Complaint: WHEEZING Source: EMS, [facility] records, old records Exam Limitations: other (PT HAS DEMENTIA AND IS NOT TALKING OR FOLLOWING ANY COMMANDS) History of Present Illness Date Seen by Provider: Apr 06, 2019 Time Seen by Provider: 02:00 Initial Comments PT ARRIVES VIA EMS FROM [facility] PER EMS, PT HAS HAD DECREASING O2 SATS OVER THE LAST SEVERAL DAYS, AND HAS BEEN STARTED ON O2 FOR O2 SATS 87-88%, BUT PT WILL NOT LEAVE IT IN PLACE, HE HAS DEMENTIA EMS REPORT THAT O2 SAT WAS 97% ON 2L/NC AT THE SCENE EMS STARTED A DUONEB TREATMENT ENROUTE, AND IS STILL IN PROCESS ON ARRIVAL PER EMS, PT HAS HAD RESPIRATORY SYMPTOMS FOR THE LAST FEW DAYS, BUT HAS WORSENED SINCE EARLIER THIS AFTERNOON PT HAS BEEN ON "Z-PACK" FOR THE LAST 2 DAYS IS UNKNOWN IF HE HAS HAD FEVER OR NOT PT HAS SEVERE DEMENTIA, IS ON HOSPICE AND IS DNR. PCP: DR. PLEITEZ Allergies and Home Medications Allergies Coded Allergies: donepezil (Verified Allergy, Unknown, 04/05/16) Home Medications Acetaminophen 325 Mg Tablet, 650 MG PO Q4H PRN for PAIN-MILD OR TEMPATURE, (Reported) Bisacodyl 10 Mg Supp.rect, 10 MG RC DAILY PRN for CONSTIPATION-4TH LINE, (Reported) Cefdinir 300 Mg Capsule, 300 MG PO BID Prescribed by: ARTI TANG on 04/06/19 1000 Docusate Sodium 100 Mg Tablet, 100 MG PO BID, (Reported) Escitalopram Oxalate 10 Mg Tablet, 15 MG PO HS, (Reported) TAKES 1 & 1/2 (10MG) TABLET Fesoterodine Fumarate 4 Mg Tab.sr.24h, 4 MG PO DAILY, (Reported) Fluticasone Propionate 16 Gm [place].susp, 2 SPRAYS NS DAILY PRN for CONGESTION, (Reported) Furosemide 20 Mg Tablet, 20 MG PO DAILY Prescribed by: ARTI TANG on 04/06/19957 Furosemide 40 Mg Tablet, 40 MG PO DAILY Prescribed by: ARTI TANG on 04/06/19957 Lanolin Alcohol/Mo/W.pet/[place] 454 Gm Cream..g., TP UD PRN for DRY HANDS, (Reported) Levothyroxine Sodium 50 Mcg Tablet, 50 MCG PO DAILY, (Reported) Loperamide HCl 2 Mg Tablet, PO UD PRN for LOOSE STOOLS, (Reported) GIVE 2 TABS AFTER 1ST LOOSE STOOL THEN 1 TAB AFTER EACH SUBSEQUENT LOOSE STOOL NOT TO EXCEED 6 TABS IN 24 HOURS Magnesium Hydroxide 400 Mg/5 Ml Oral.susp, 30 ML PO DAILY PRN for CONSTIPATION- 7TH LINE, (Reported) Melatonin 3 Mg Tablet, 6 MG PO HS, (Reported) TAKES 2 (3MG) TABLETS Memantine HCl 10 Mg Tablet, 10 MG PO BID, (Reported) Polyethylene Glycol 3350 17 Gm Powd.pack, 17 GM PO DAILY, (Reported) Rivastigmine 9.5 Mg Patch, 9.5 MG TD DAILY, (Reported) Trazodone HCl 50 Mg Tablet, 50 MG PO HS, (Reported) Patient Home Medication List Home Medication List Reviewed: Yes Review of Systems Review of Systems Constitutional: other (UNKNOWN) Respiratory: see HPI Past Bunmodi-Ynkceq-Nwlyoz Hx Patient Social History Smoking Status: Unknown if Ever Smoked Recent Foreign Travel: No Contact w/Someone Who Travel: No Recent Hopitalizations: No Immunizations Up To Date Tetanus Booster (TDap): Unknown Date of Pneumonia Vaccine: Jan 18, 2016 Seasonal Allergies Seasonal Allergies: No Past Medical History Surgeries: No (UNKNOWN, PT UNABLE TO GIVE INFORMATION) Respiratory: No Cardiac: No Neurological: Yes Dementia Reproductive Disorders: No Genitourinary: Yes Bladder Infection Gastrointestinal: Yes Gastroesophageal Reflux, Chronic Constipation Musculoskeletal: Yes (MULTIPLE FALLS) Chronic Back Pain Endocrine: Yes Hypothyroidsim HEENT: No Cancer: No Psychosocial: Yes Anxiety, Depression Integumentary: No Blood Disorders: No Family Medical History No Pertinent Family Hx Physical Exam Vital Signs - First Documented 04/06/19 02:00 Temp 36.9 Pulse 76 Resp 26 B/P (MAP) 112/97 Pulse Ox 100 O2 Delivery Nasal Cannula O2 Flow Rate 2.00 Capillary Refill : Height: 5'6.00" Weight: 135lbs. oz. 61.858535ef; BMI Method:Estimated General Appearance: other (PT MOANING, WITH AUDIBLE WHEEZING/RHONCHI FROM DOORWAY. FREQUENT HARSH, LOOSE COUGH. TREMULOUS, AND HOLDING ARMS STIFFLY CROSSED OVER HIS CHEST) Respiratory: no accessory muscle use, rales, rhonchi, wheezing, other (AFTER NEB TREATMENT STARTED, NOW DIFFUSE RALES AND EXPIRATORY WHEEZING BILATERALLY) Cardiovascular: tachycardia (100-110'S) Gastrointestinal: soft Extremities: no pedal edema, normal capillary refill Neurologic/Psychiatric: other (MENTATION ABOVE; APPEARS TO BE MOVING ALL EXTREMITIES, BUT NOT ON COMMAND. DOES NOT TALK OR FOLLOW ANY COMMANDS. ) Skin: normal color, warm/dry Focused Exam Lactate Level 04/06/19 02:25: Lactic Acid Level 0.81 Lactic Acid Level Laboratory Tests Test 04/06/19 02:25 Lactic Acid Level 0.81 MMOL/L (0.50-2.00) Progress/Results/Core Measures Suspected Sepsis SIRS Temperature: Pulse: Respiratory Rate: Laboratory Tests 04/06/19 02:25: White Blood Count 10.3 Blood Pressure / Mean: 04/06/19 02:25: Lactic Acid Level 0.81 Laboratory Tests 04/06/19 02:25: Creatinine 1.15, INR Comment 1.2, Platelet Count 424H, Total Bilirubin 0.4 Results/Orders Lab Results Laboratory Tests Test 04/06/19 02:25 Range/Units White Blood Count 10.3 4.3-11.0 10^3/uL Red Blood Count 2.65 L 4.35-5.85 10^6/uL Hemoglobin 7.2 L 13.3-17.7 G/DL Hematocrit 24 L 40-54 % Mean Corpuscular Volume 91 80-99 FL Mean Corpuscular Hemoglobin 27 25-34 PG Mean Corpuscular Hemoglobin Concent 30 L 32-36 G/DL Red Cell Distribution Width 15.2 H 10.0-14.5 % Platelet Count 424 H 130-400 10^3/uL Mean Platelet Volume 9.0 7.4-10.4 FL Neutrophils (%) (Auto) 68 42-75 % Lymphocytes (%) (Auto) 17 12-44 % Monocytes (%) (Auto) 12 0-12 % Eosinophils (%) (Auto) 3 0-10 % Basophils (%) (Auto) 0 0-10 % Neutrophils # (Auto) 7.0 1.8-7.8 X 10^3 Lymphocytes # (Auto) 1.8 1.0-4.0 X 10^3 Monocytes # (Auto) 1.2 H 0.0-1.0 X 10^3 Eosinophils # (Auto) 0.3 0.0-0.3 10^3/uL Basophils # (Auto) 0.0 0.0-0.1 10^3/uL Prothrombin Time 16.2 H 12.2-14.7 SEC INR Comment 1.2 0.8-1.4 Activated Partial Thromboplast Time 34 24-35 SEC Urine Color YELLOW Urine Clarity CLEAR Urine pH 5 5-9 Urine Specific [place] 1.020 1.016-1.022 Urine Protein 2+ H NEGATIVE Urine Glucose (UA) NEGATIVE NEGATIVE Urine Ketones NEGATIVE NEGATIVE Urine Nitrite NEGATIVE NEGATIVE Urine Bilirubin NEGATIVE NEGATIVE Urine Urobilinogen NORMAL NORMAL MG/DL Urine Leukocyte Esterase NEGATIVE NEGATIVE Urine RBC (Auto) NEGATIVE NEGATIVE Urine RBC NONE /HPF Urine WBC NONE /HPF Urine Squamous Epithelial Cells 0-2 /HPF Urine Crystals NONE /LPF Urine Bacteria TRACE /HPF Urine Casts NONE /LPF Urine Mucus MODERATE H /LPF Urine Culture Indicated NO Sodium Level 147 H 135-145 MMOL/L Potassium Level 4.1 3.6-5.0 MMOL/L Chloride Level 113 H 98-107 MMOL/L Carbon Dioxide Level 23 21-32 MMOL/L Anion Gap 11 5-14 MMOL/L Blood Urea Nitrogen 35 H 7-18 MG/DL Creatinine 1.15 0.60-1.30 MG/DL Estimat Glomerular Filtration Rate 60 BUN/Creatinine Ratio 30 Glucose Level 99 70-105 MG/DL Lactic Acid Level 0.81 0.50-2.00 MMOL/L Calcium Level 8.5 8.5-10.1 MG/DL Corrected Calcium 9.3 8.5-10.1 MG/DL Magnesium Level 2.2 1.6-2.4 MG/DL Total Bilirubin 0.4 0.1-1.0 MG/DL Aspartate Amino Transf (AST/SGOT) 19 5-34 U/L Alanine Aminotransferase (ALT/SGPT) 18 0-55 U/L Alkaline Phosphatase 93 40-136 U/L B-Type Natriuretic Peptide 278.3 H <100.0 PG/ML Total Protein 6.4 6.4-8.2 GM/DL Albumin 3.0 L 3.2-4.5 GM/DL Micro Results Microbiology 04/06/19 Blood Culture - Preliminary, Resulted No growth 04/06/19 Blood Culture - Preliminary, Resulted No growth My Orders Orders - BLANK CONTRERAS DO Ed Iv/Invasive Line Start (04/06/19 02:03) Ekg Tracing (04/06/19 02:03) O2 (04/06/19 02:03) Monitor-Rhythm Ecg Trace Only (04/06/19 02:03) Chest 1 View, Ap/Pa Only (04/06/19 02:03) Albuterol/Ipra Inhalation Soln (Duoneb I (04/06/19 02:15) Rt Request For Service (04/06/19 02:03) Methylprednisolone Sod Succ (Solu-Medrol (04/06/19 02:03) Svn Small Volume Nebulizer (04/06/19 02:03) BNP (04/06/19 02:03) Cbc With Automated Diff (04/06/19 02:03) Comprehensive Metabolic Panel (04/06/19 02:03) Lactic Acid Analyzer (04/06/19 02:03) Magnesium (04/06/19 02:03) Protime With Inr (04/06/19 02:03) Partial Thromboplastin Time (04/06/19 02:03) Ua Culture If Indicated (04/06/19 02:03) Blood Culture (04/06/19 02:03) Albuterol Pre-Mix Nebs (Rt) (Proventil (04/06/19 02:27) Dexamethasone Injection (Decadron Inject (04/06/19 02:30) Svn Small Volume Nebulizer (04/06/19 02:27) Catheter(Urinary) Insert & Ass 03,15 (04/06/19 02:28) Ceftriaxone For Iv Use (Rocephin For I (04/06/19 03:30) Azithromycin Injection (Zithromax Inject (04/06/19 03:30) Furosemide Injection (Lasix Injection) (04/06/19 03:30) Ed Iv/Invasive Line Start (04/06/19 03:23) Ns Iv 500 Ml (Sodium Chloride 0.9%) (04/06/19 03:23) Medications Given in ED Vital Signs/I&O 04/06/19 04/06/19 04/06/19 02:00 02:17 02:25 Temp 36.9 Pulse 76 Resp 26 B/P (MAP) 112/97 Pulse Ox 100 100 100 O2 Delivery Nasal Cannula Nasal Cannula Nasal Cannula O2 Flow Rate 2.00 2.00 2.00 Capillary Refill : Progress Note : Progress Note GIVEN HOUR LONG NEB TREATMENT, SOLU-MEDROL, LASIX AND ANTIBIOTICS SOME DECREASE IN AUDIBLE LUNG SOUNDS--NOW ONLY AUDIBLE FROM BEDSIDE O2 SATS REMAIN IN MID 90'S ON 2L/NC BP UPPER 90'S TO LOW 100'S HEART RATE DOWN ECG Initial ECG Impression Date: Apr 06, 2019 Initial ECG Impression Time: 02:36 Initial ECG Rate: 96 Initial ECG Rhythm: Normal Sinus (MUCH ARTIFACT, INFERIOR Q WAVES) Diagnostic Imaging Comments CXR--DIFFUSE BILATERAL INFILTRATES, PENDING RADIOLOGIST REVIEW Reviewed: Reviewed by Me Departure Communication (Admissions) 0325--SPOKE WITH DR. PLEITEZ, ACCEPTS PT FOR ADMIT. WILL BE BOARDING PT IN ER UNTIL BED AVAILABLE UPSTAIRS AT 0700 0330--CONTACTED PT'S DAUGHTER, AND DPOA, AND INFORMED HER OF PT'S CONDITION. SHE AGREES TO INPATIENT TREATMENT, ANTIBIOTICS, AND BLOOD TRANSFUSION AT THIS TIME. 0430--GRAND DAUGHTER HERE TO SEE PT. Impression Primary Impression: Acute respiratory failure Additional Impressions: Bilateral pneumonia CHF (congestive heart failure) Severe dementia Disposition: ADMITTED INPATIENT Condition: Stable Admissions Decision to Admit Reason: Admit from ER (General) Decision to Admit/Date: Apr 06, 2019 Time/Decision to Admit Time: 03:25 Departure-Patient Inst. Referrals: SHAKIRA PLEITEZ DO (PCP/Family) Primary Care Physician Scripts Cefdinir (Cefdinir) 300 Mg Capsule 300 MG PO BID for 5 Days, #10 CAP Prov: SHAKIRA PLEITEZ DO 04/06/19 Furosemide (Lasix) 40 Mg Tablet 40 MG PO DAILY for 3 Days, #3 TAB Prov: SHAKIRA PLEITEZ DO 04/06/19 Furosemide (Lasix) 20 Mg Tablet 20 MG PO DAILY for 30 Days, #30 TAB Prov: SHAKIRA PLEITEZ DO 04/06/19 BLANK CONTRERAS DO Apr 06, 2019 02:43
[2019-04-06 02:51] LABS: BACTERIA,URINE TRACE /HPF; INR 1.2 (0.8-1.4); PROTHROMBIN TIME PATIENT 16.2 SEC (12.2-14.7); SQUAMOUS EPITHELIAL CELL,UR 0-2 /HPF
[2019-04-06 02:59] LABS: BILIRUBIN,TOTAL 0.4 MG/DL (0.1-1.0); CALCIUM 8.5 MG/DL (8.5-10.1); CREATININE SERUM 1.15 MG/DL (0.60-1.30); MAGNESIUM 2.2 MG/DL (1.6-2.4); POTASSIUM 4.1 MMOL/L (3.6-5.0); TOTAL PROTEIN 6.4 GM/DL (6.4-8.2)
[2019-04-06] MEDS ORDERED: NS IV 500 ML 500 ML IV ONE (03:23)
[2019-04-06] MEDS ORDERED: FUROSEMIDE 40 MG/4 ML INJ (LASIX) IVP ONE (03:30)
[2019-04-06] MEDS ORDERED: cefTRIAXone FOR IV USE 1,000 MG in WATER (STERILE) FOR INJECTION 10 ML IV ONE (03:30)
[2019-04-06] MEDS ORDERED: AZITHROMYCIN INJECTION 500 MG in NS (IVPB) 250 ML IV ONE (03:30)
[2019-04-06] MEDS ORDERED: cefTRIAXone 1,000 MG IV (ROCEPHIN) VIAL ONE (03:39)
[2019-04-06] MEDS ORDERED: NS (IVPB) 250 ML ONE (03:39)
[2019-04-06] MEDS ORDERED: WATER (STERILE) FOR INJECTION 10 ML ONE (03:40)
[2019-04-06] MEDS ORDERED: AZITHROMYCIN 500 MG (ZITHROMAX) VIAL ONE (03:40)
[2019-04-06 04:43] VITALS: BP 100/58
[2019-04-06 04:58] VITALS: BP 92/52
--- NOTE | 2019-04-06 07:00 | NUR ---
REPORT FROM DANIEL
[2019-04-06 07:08] VITALS: BP 90/79
--- NOTE | 2019-04-06 07:25 | Diagnostic Imaging Report ---
Examination: Chest one view. History: Respiratory distress. Findings: Comparison is 06/05/2016. There are bilateral central interstitial opacities concerning for pulmonary edema. No pneumothorax. No pleural effusion. Heart size is normal. Impression: 1. Bilateral central interstitial opacities concerning for moderate pulmonary edema. Infection is considered less likely. Dictated by: Dictated on workstation # [id number]
[2019-04-06 07:45] VITALS: BP 89/68
--- NOTE | 2019-04-06 08:18 | History & Physicial ---
History of Present Illness History of Present Illness Reason for visit/HPI Patient is resident of long term. Patient difficulty in breathing. Patient sent out to the emergency room. Hemoglobin 7. Chest x-ray shows pulmonary edema. BNP in the 200s. Chance of pneumonia. Patient is DO NOT RESUSCITATE. Patient has dementia. Found out later patient also hospice. Spoke to family this morning told and no heroics will be done. Patient will be treated for congestive heart failure and possibly pneumonia and severe anemia. Lovenox will not be given due to the anemia Date of Admission Apr 06, 2019 at 03:30 Time Seen by a Provider: 08:13 I consulted on this patient on 04/06/19 08:13 Attending Physician Ruddy Pleitez DO Admitting Physician Ruddy Pleitez DO Consult Allergies and Home Medications Allergies Coded Allergies: donepezil (Verified Allergy, Unknown, 04/05/16) Home Medications Acetaminophen 500 Mg Tablet, 1,000 MG PO Q6H PRN for PAIN, (Reported) Alprazolam 0.5 Mg Tablet, 0.5 MG PO QID PRN for ANXIETY, (Reported) Bisacodyl 10 Mg Supp.rect, 10 MG RC DAILY PRN PRN for CONSTIPATION, (Reported) Diphenhydramine HCl 25 Mg Capsule, 25 MG PO Q6H PRN for ITCHING, (Reported) Escitalopram Oxalate 20 Mg Tablet, 20 MG PO HS, (Reported) Fluticasone Propionate 9.9 Ml Grace.susp, 9.9 ML NS DAILY, (Reported) Levothyroxine Sodium 25 Mcg Tablet, 25 MCG PO DAILY, (Reported) Magnesium Hydroxide 400 Mg/5 Ml Oral.susp, 30 ML PO DAILY PRN for CONSTIPATION, (Reported) Melatonin 5 Mg Tablet, 6 MG PO HS, (Reported) Memantine HCl 10 Mg Tablet, 10 MG PO BID, (Reported) Polyethylene Glycol 3350 17 Gm Powd.pack, 17 GM PO DAILY, (Reported) Promethazine/Phenyleph/Codeine 118 Ml Syrup, 5 ML PO Q6H PRN for COUGH, (Reported) Sulfamethoxazole/Trimethoprim 1 Each Tablet, 1 EACH PO BID Prescribed by: DOREEN MCCORMACK on 08/24/181814 Tolterodine Tartrate 2 Mg Tablet, 2 MG PO BID, (Reported) Trazodone HCl 100 Mg Tablet, 100 MG PO HS, (Reported) Patient Home Medication List Home Medication List Reviewed: No Past [id number] Hx Patient Social History Marrital Status: Alcohol Use: Denies Use Recreational Drug Use: No Smoking Status: Unknown if Ever Smoked Recent Foreign Travel: No Contact w/other who traveled: No Recent Hopitalizations: No Recent Infectious Disease Expo: No Immunizations Up To Date Tetanus Booster (TDap): Unknown Date of Pneumonia Vaccine: Jan 18, 2016 Seasonal Allergies Seasonal Allergies: No Surgeries No (UNKNOWN, PT UNABLE TO GIVE INFORMATION) Respiratory No Cardiovascular No Neurological Yes Dementia Reproductive System Hx Reproductive Disorders: No Genitourinary Yes Bladder Infection Gastrointestinal Yes Gastroesophageal Reflux, Chronic Constipation Musculoskeletal Yes (MULTIPLE FALLS) Chronic Back Pain Endocrine History of Endocrine Disorders: Yes Endocrine Disorders: Hypothyroidsim HEENT History of HEENT Disorders: No Cancer No Psychosocial History of Psychiatric Problem: Yes Behavioral Health Disorders: Anxiety, Depression Integumentary History of Skin or Integumenta: No Blood Transfusions History of Blood Disorders: No Family Medical History Significant Family History: No Pertinent Family Hx Review of Systems Constitutional: malaise, weakness EENTM: no symptoms reported Respiratory: short of breath Cardiovascular: no symptoms reported Gastrointestinal: no symptoms reported Genitourinary: no symptoms reported Physical Exam Vital Signs Vital Signs - First Documented 04/06/19 02:00 Temp 36.9 Pulse 76 Resp 26 B/P (MAP) 112/97 Pulse Ox 100 O2 Delivery Nasal Cannula O2 Flow Rate 2.00 Capillary Refill : Less Than 3 Seconds Height, Weight, BMI Height: 5'6.00" Weight: 135lbs. oz. 61.219740gh; 20.00 BMI Method:Estimated General Appearance: No Apparent Distress, Thin HEENT: Normal ENT Inspection Neck: Normal Inspection Respiratory: No Accessory Muscle Use, No Respiratory Distress, Decreased Breath Sounds Cardiovascular: Regular Rate, Rhythm, No Murmur Gastrointestinal: Non Tender, Soft Assessment/Plan Assessment and Plan Respiratory failure. Pneumonia. Pulmonary edema. Severe anemia. Dementia. Spoke to family and will be conservative treatment patient. Told any time they want him back to long term we'll do Admission Diagnosis Admission Status: Observation RUDDY PLEITEZ DO Apr 06, 2019 08:18
[2019-04-06] MEDS ORDERED: 1/2 NS IV SOLUTION 1,000 ML IV SCH (08:30)
[2019-04-06] MEDS ORDERED: CATHETER FLUSH 10 ML SYR IV PRN (08:30)
[2019-04-06] MEDS ORDERED: FUROSEMIDE 40 MG/4 ML INJ (LASIX) IVP NR (09:45)
[2019-04-06] MEDS ORDERED: ESCI10TA55 PO (09:46)
[2019-04-06] MEDS ORDERED: ACET325T49 PO (09:46)
[2019-04-06] MEDS ORDERED: FESO4TAB PO (09:46)
[2019-04-06] MEDS ORDERED: LOPE-134 PO (09:46)
[2019-04-06] MEDS ORDERED: MELA3TAB PO (09:46)
[2019-04-06] MEDS ORDERED: MEMA10TA2 PO (09:46)
[2019-04-06] MEDS ORDERED: DOCU100T2 PO (09:46)
[2019-04-06] MEDS ORDERED: TRAZ-222 PO (09:46)
[2019-04-06] MEDS ORDERED: FLUT16SP22 NS (09:46)
[2019-04-06] MEDS ORDERED: LEVO50TA6 PO (09:46)
[2019-04-06] MEDS ORDERED: LANO454C3 TP (09:46)
--- NOTE | 2019-04-06 09:49 | NUR ---
UPDATED MED REC WITH ORDER SUMMARY REPORT FROM [facility]
[2019-04-06] MEDS ORDERED: FURO-124 PO (09:58)
[2019-04-06] MEDS ORDERED: FURO-125 PO (09:58)
[2019-04-06] MEDS ORDERED: CEFD300C3 PO (10:00)
--- NOTE | 2019-04-06 10:05 | NUR ---
PALLIATIVE CARE RN was notified that patient was on [facility] prior to arriving to the hospital. Called [facility] and confirmed that he is still currently on Hospice. Dr. Zuniga is okay with discharge when the family is and the RN is going to get the orders for discharge. I have sent the NON-Emergent EMS transport form to EMS. He is able to discharge at any time.
--- NOTE | 2019-04-06 11:18 | Diagnostic Imaging Report ---
EXAMINATION: Portable erect AP chest at 0845 hours. INDICATION: Respiratory distress. FINDINGS: The heart size is within normal limits and stable when compared to the exam performed earlier today. The alveolar/interstitial pulmonary infiltrates involving both lungs seen previously are essentially no different. The central pulmonary vascularity may be somewhat less prominent than on the prior exam, however. The mediastinum is not widened. The osseous structures are intact. IMPRESSION: The appearance of the chest has improved slightly since the prior study as the central pulmonary vascularity is somewhat less prominent. There are still diffuse alveolar/interstitial pulmonary infiltrates bilaterally, however. Dictated by: Dictated on workstation # [id number]
--- NOTE | 2019-04-07 07:09 | Clinic Account Progress/Dx ---
Clinic Account Progress/Dx DIAGNOSIS: Time Seen by Provider: 07:07 Acute respiratory failure. anemia. Hypernatremia.. Congestive heart failure. Severe dementia. Pneumonia. Hypothyroid SHAKIRA PLEITEZ DO Apr 07, 2019 07:09
[2019-04-07] MEDS ORDERED: AZITHROMYCIN 250 MG TAB (ZITHROMAX) PO SCH (09:00)
[2019-04-07] MEDS ORDERED: cefTRIAXone 1,000 MG/SWFI 10 ML IV PUSH IV SCH ×2 (09:00)
== END 2019-04-06 11:27 | disposition hospice, inpatient (51) ==
LOC: EDUNIT# 02:00 → ER 02:01 → 4TH 03:30 → UNDOADMOB 03:30 → EDLOC 07:45 → UNDODISOB 12:08
PROVIDERS: ADMIT Family Medicine; ATTEND Family Medicine
DX: J96.00 Acute respiratory failure, unspecified whether with hypoxia or hypercapnia (principal); J18.9 Pneumonia, unspecified organism; K21.9 Gastro-esophageal reflux disease without esophagitis; K59.00 Constipation, unspecified; G89.29 Other chronic pain; M54.9 Dorsalgia, unspecified; D64.9 Anemia, unspecified; I50.1 Left ventricular failure, unspecified; E03.9 Hypothyroidism, unspecified; F41.9 Anxiety disorder, unspecified; F32.9 Major depressive disorder, single episode, unspecified; F03.90 Unspecified dementia, unspecified severity, without behavioral disturbance, psychotic disturbance, mood disturbance, and anxiety; Z79.899 Other long term (current) drug therapy
CPT/HCPCS: 36415; 51702; 71045; 80053; 81000; 83605; 83735; 83880; 85025; 85610; 85730; 86850; 86900; 86901; 86920; 87040; 93005; 93041; 94640; G0378